=== PATIENT | male | born 1930 | race Caucasian/White ===

== ENCOUNTER 2016-12-23 02:37 | Inpatient (IN) ==
[2016-12-23] MEDS ORDERED: OFIRMEV 1000 MG/ISOTONIC SOLN 100 ML IV ONE ×2 (02:50→11:03)
--- NOTE | 2016-12-23 02:51 | PROVIDER DOCUMENTATION ---
HPI-Male Problem - General Source: family - History of Present Illness-Male Severity in ED: reports: moderate Onset/Duration: reports: last night Timing: reports: still present Context/Activities at Onset: reports: none Urinary Symptoms: reports: hematuria Similar Symptoms Previously?: No Recently seen or treated by another doctor?: No <Juli Du - Last Filed: 12/23/16 02:47> <Sebas Marie - Last Filed: 12/23/16 04:11> - General Chief Complaint: Male Stated Complaint: blood in catheter Time Seen by Provider: 12/23/16 02:40 Allergies/Adverse Reactions: Patient Allergies Allergy/AdvReac Type Severity Reaction Status Date / Time clindamycin Allergy Mild RASH Verified 04/13/13 16:14 Home Medications: Home Medication List Medication Instructions Recorded Confirmed Last Taken Type Sucralfate [Carafate] 1 gm PO 4XDAY #0 tablet 03/24/16 12/23/16 Unknown Rx Citalopram [Celexa] 20 mg PO QAM #0 tablet 08/20/16 12/23/16 Unknown Rx Clopidogrel [Plavix] 75 mg PO DAILY #0 tablet 08/20/16 12/23/16 Unknown Rx Finasteride [Proscar] 5 mg PO DAILY #0 tablet 08/20/16 12/23/16 Unknown Rx Tamsulosin [Flomax] 0.4 mg PO BID #0 capsule 08/20/16 12/23/16 Unknown Rx Divalproex [Depakote] 1 tab PO BID 12/23/16 12/23/16 Unknown History Mirtazapine 1 tab PO HS 12/23/16 12/23/16 Unknown History - History of Present Illness-Male Nature of Presenting Problem: Daughter states that pt has been moaning most of the night. Daughter got up to check on pt and found blood in chair and in catheter bag. Pt has fever on arrival. (Juli Du) Review of Systems - Adult - REVIEW OF SYSTEMS - ADULT ROS:: ROS per family Constitutional: reports: fever. denies: chills Eyes: reports: no symptoms reported Ears, Nose, Mouth & Throat: reports: no symptoms reported Cardiovascular: reports: no symptoms reported Respiratory: reports: no symptoms reported Gastrointestinal: reports: no symptoms reported Genitourinary: reports: hematuria, other (indwelling galvan catheter) Musculoskeletal: reports: no symptoms reported Integumentary: reports: no symptoms reported Neurological: reports: no symptoms reported Psychiatric: reports: no symptoms reported Endocrine: reports: no symptoms reported Hematologic/Lymphatic: reports: no symptoms reported Allergic/Immunologic: reports: no symptoms reported All Other Systems: Reviewed and Negative <Juli Du - Last Filed: 12/23/16 02:47> Past History - Adult - PAST MEDICAL HISTORY-ADULT Review of Records: reports: Nursing Assessment Review, Medications Reviewed Major Childhood Illnesses: reports: denies history Cardiovascular: reports: denies history Respiratory: reports: denies history Gastrointestinal: reports: denies history Obstetrical/Gynecological: reports: denies history Genitourinary: reports: chronic UTI's Musculoskeletal: reports: denies history Neurological: reports: CVA Endocrine/Immune: reports: denies history Other Conditions: reports: MRSA - PRIOR SURGERIES/PROCEDURES Surgical/Procedure History: reports: other (AAA repair) - IMMUNIZATION STATUS Childhood Immunizations: See Nurse Assessment Flu Vaccine: See Nurse Assessment - FAMILY HISTORY Family History: reviewed, not pertinent - SOCIAL HISTORY Smoking: quit greater than 1 year Substance Use: none/never Alcohol Use Frequency: never <Juli Du - Last Filed: 12/23/16 02:47> Physical Exam-General - PHYSICAL EXAM-ADULT Initial Vital Signs Reviewed: Yes - CONSTITUTIONAL General Appearance: alert - RESPIRATORY Respiratory: chest non-tender, lungs clear, normal breath sounds - CARDIOVASCULAR Cardiovascular: normal peripheral pulses, regular rate, rhythm, no edema - GASTROINTESTINAL (ABDOMEN) Abdominal Exam: non tender, soft - MUSCULOSKELETAL Back Exam: no CVA tenderness - SKIN Integumentary: normal color, normal turgor, warm/dry <Juli Du - Last Filed: 12/23/16 02:47> Progress <Juli Du - Last Filed: 12/23/16 02:47> - XRAY 1 XRAY Study: Chest Impression: Normal <Sebas Marie - Last Filed: 12/23/16 04:11> - PLAN OF CARE/RESULTS Progress/Plan/Lab Results: Laboratory Tests 12/23/16 12/23/16 12/23/16 03:10 03:10 03:10 WBC 11.19 H RBC 4.19 L Hgb 12.6 L Hct 38.3 L MCV 91.4 MCH 30.1 MCHC 32.9 L RDW Std Deviation 15.1 H Plt Count 249 MPV 9.5 Immature Gran % (Auto) 0.4 Neut % (Auto) 87.0 H Lymph % (Auto) 7.8 L [place] % (Auto) 2.0 Eos % (Auto) 2.4 Baso % (Auto) 0.4 Immature Gran # (Auto) 0.04 Neut # (Auto) 9.75 H Lymph # (Auto) 0.87 L [place] # (Auto) 0.22 Eos # (Auto) 0.27 Baso # (Auto) 0.04 Sodium 138 Potassium 4.1 Chloride 103 Carbon Dioxide 22 L Anion Gap 13 BUN 21 Creatinine 1.3 H Estimated GFR/1.73 m2 52 BUN/Creatinine Ratio 16 Glucose 108 H Calculated Osmolality 279 Calcium 9.0 Total Bilirubin 0.40 AST 22 ALT 12 Alkaline Phosphatase 82 Total Protein 6.5 Albumin 3.6 Globulin 3.0 Albumin/Globulin Ratio 1.0 Plasma Lactate 2.1 Urine Source Urine Color Urine Clarity Urine pH Ur Specific [place] Urine Protein Urine Ketones Urine Blood Urine Nitrite Urine Bilirubin Urine Urobilinogen Urine Microscopic RBC Urine WBC Urine Microscopic WBC Ur Epithelial Cells Urine Bacteria Urine Glucose 12/23/16 03:40 WBC RBC Hgb Hct MCV MCH MCHC RDW Std Deviation Plt Count MPV Immature Gran % (Auto) Neut % (Auto) Lymph % (Auto) [place] % (Auto) Eos % (Auto) Baso % (Auto) Immature Gran # (Auto) Neut # (Auto) Lymph # (Auto) [place] # (Auto) Eos # (Auto) Baso # (Auto) Sodium Potassium Chloride Carbon Dioxide Anion Gap BUN Creatinine Estimated GFR/1.73 m2 BUN/Creatinine Ratio Glucose Calculated Osmolality Calcium Total Bilirubin AST ALT Alkaline Phosphatase Total Protein Albumin Globulin Albumin/Globulin Ratio Plasma Lactate Urine Source CATH Urine Color RED Urine Clarity VERY CLOUDY A Urine pH 7.0 Ur Specific [place] 1.010 Urine Protein 2+(100 mg/dL) A Urine Ketones NEGATIVE Urine Blood 4+ Urine Nitrite NEGATIVE Urine Bilirubin NEGATIVE Urine Urobilinogen NORMAL Urine Microscopic RBC TNTC A Urine WBC 2+ A Urine Microscopic WBC 10-20 A Ur Epithelial Cells <10 Urine Bacteria 2+ Urine Glucose NEGATIVE Orders Category Date Time Status Bladder Scan and Record Result ORDERED Care 12/23/16 02:50 Active CHEST-PORTABLE [RAD] Stat Exams 12/23/16 02:50 Taken BLOOD CULTURE [BLDCUL] Stat Lab 12/23/16 03:03 Ordered CBC WITH ELECTRONIC DIFF [HEME] Stat Lab 12/23/16 03:10 Completed CMP [COMPREHENSIVE METABOLIC PANEL] [CHEM] Stat Lab 12/23/16 03:10 Completed LACTATE, PLASMA [CHEM] Stat Lab 12/23/16 03:10 Completed UA NIMS W/REFLEX CULT PL [URINALYSIS] Stat Lab 12/23/16 03:40 Completed URINE CULTURE [RM] Routine Lab 12/23/16 04:06 Ordered Acetaminophen [Ofirmev 1000 mg/Isotonic Soln] 100 ml Med 12/23/16 02:50 Discontinued IV NOW CefTRIAXONE 1 GM/NS [Rocephin 1 gm/Ns] 50 ml Med 12/23/16 04:01 Active IV NOW Lorazepam [Ativan] Med 12/23/16 03:17 Discontinued 1 mg IV NOW ONE Morphine Med 12/23/16 03:16 Discontinued 4 mg IV NOW ONE Promethazine [Phenergan] Med 12/23/16 03:16 Discontinued 25 mg IV NOW ONE Sodium Chloride 0.9% Med 12/23/16 03:16 Discontinued 10 ml INJ NOW ONE Vital Signs Temp Pulse Resp BP Pulse Ox 12/23/16 02:46 101.2 F H 103 H 20 187/111 103 H clindamycin Allergy (Mild, Verified 04/13/13 16:14) RASH Sucralfate [Carafate] 1 gm PO 4XDAY #0 tablet 03/24/16 Citalopram [Celexa] 20 mg PO QAM #0 tablet 08/20/16 Clopidogrel [Plavix] 75 mg PO DAILY #0 tablet 08/20/16 Finasteride [Proscar] 5 mg PO DAILY #0 tablet 08/20/16 Tamsulosin [Flomax] 0.4 mg PO BID #0 capsule 08/20/16 Divalproex [Depakote] 1 tab PO BID 12/23/16 Mirtazapine 1 tab PO HS 12/23/16 I&O 12/21/16 12/22/16 12/23/16 06:59 06:59 06:59 Intake Total 100 Output Total 700 Balance -600 Laboratory 12/23/16 12/23/16 12/23/16 03:40 03:10 03:10 WBC 11.19 H RBC 4.19 L Hgb 12.6 L Hct 38.3 L MCV 91.4 MCH 30.1 MCHC 32.9 L RDW Std Deviation 15.1 H Plt Count 249 MPV 9.5 Immature Gran % (Auto) 0.4 Neut % (Auto) 87.0 H Lymph % (Auto) 7.8 L [place] % (Auto) 2.0 Eos % (Auto) 2.4 Baso % (Auto) 0.4 Immature Gran # (Auto) 0.04 Neut # (Auto) 9.75 H Lymph # (Auto) 0.87 L [place] # (Auto) 0.22 Eos # (Auto) 0.27 Baso # (Auto) 0.04 Sodium Potassium Chloride Carbon Dioxide Anion Gap BUN Creatinine Estimated GFR/1.73 m2 BUN/Creatinine Ratio Glucose Calculated Osmolality Calcium Total Bilirubin AST ALT Alkaline Phosphatase Total Protein Albumin Globulin Albumin/Globulin Ratio Plasma Lactate 2.1 Urine Source CATH Urine Color RED Urine Clarity VERY CLOUDY A Urine pH 7.0 Ur Specific [place] 1.010 Urine Protein 2+(100 mg/dL) A Urine Ketones NEGATIVE Urine Blood 4+ Urine Nitrite NEGATIVE Urine Bilirubin NEGATIVE Urine Urobilinogen NORMAL Urine Microscopic RBC TNTC A Urine WBC 2+ A Urine Microscopic WBC 10-20 A Ur Epithelial Cells <10 Urine Bacteria 2+ Urine Glucose NEGATIVE 12/23/16 03:10 WBC RBC Hgb Hct MCV MCH MCHC RDW Std Deviation Plt Count MPV Immature Gran % (Auto) Neut % (Auto) Lymph % (Auto) [place] % (Auto) Eos % (Auto) Baso % (Auto) Immature Gran # (Auto) Neut # (Auto) Lymph # (Auto) [place] # (Auto) Eos # (Auto) Baso # (Auto) Sodium 138 Potassium 4.1 Chloride 103 Carbon Dioxide 22 L Anion Gap 13 BUN 21 Creatinine 1.3 H Estimated GFR/1.73 m2 52 BUN/Creatinine Ratio 16 Glucose 108 H Calculated Osmolality 279 Calcium 9.0 Total Bilirubin 0.40 AST 22 ALT 12 Alkaline Phosphatase 82 Total Protein 6.5 Albumin 3.6 Globulin 3.0 Albumin/Globulin Ratio 1.0 Plasma Lactate Urine Source Urine Color Urine Clarity Urine pH Ur Specific [place] Urine Protein Urine Ketones Urine Blood Urine Nitrite Urine Bilirubin Urine Urobilinogen Urine Microscopic RBC Urine WBC Urine Microscopic WBC Ur Epithelial Cells Urine Bacteria Urine Glucose (O'Meara,Sebas F.) Departure <Juli Du - Last Filed: 12/23/16 02:47> - Departure Time of Disposition Order: 04:11 Certified Medical Emergency: Emergent <Sebas Marie - Last Filed: 12/23/16 04:11> - Departure DIAGNOSIS: UTI (urinary tract infection) due to urinary indwelling Galvan catheter Qualifiers: Indwelling urinary catheter type: indwelling urethral catheter Encounter type: initial encounter Qualified Code(s): T83.511A - Infection and inflammatory reaction due to indwelling urethral catheter, initial encounter; N39.0 - Urinary tract infection, site not specified Disposition: ADMITTED INPATIENT 09 Condition: Fair Attestation - Scribe Verification/Attestation Scribe:: Juli Du Acting as Scribe for:: Sebas Marie Scribe documention review:: This chart was documented by a scribe and accurately reflects the service the provider performed and the decisions made by the provider. <Juli Du - Last Filed: 12/23/16 02:47> Physician Attestation - Physician Attestation I, the provider, attest to the following statement:: Sebas Marie Physician documentation Attestation:: This documentation recorded by the scribe accurately reflects the service I personally performed and the decisions made by me. <Juli Du - Last Filed: 12/23/16 02:47>
[2016-12-23] MEDS ORDERED: SODIUM CHLORIDE 0.9% INJ ONE (03:16)
[2016-12-23] MEDS ORDERED: PHENERGAN IV ONE (03:16)
[2016-12-23] MEDS ORDERED: MORPHINE IV ONE (03:16)
[2016-12-23] MEDS ORDERED: ATIVAN IV ONE (03:17)
[2016-12-23 03:30] LABS: BASO% 0.4 % (0.0-0.8); EOS# 0.27 X1000 (0.0-0.7); EOS% 2.4 % (0.0-10.0); HEMATOCRIT 38.3 % (42.0-52.0); HEMOGLOBIN 12.6 g/dL (14.0-18.0); IMM GRAN# 0.04 X1000 (0.0-0.04); IMM GRAN% 0.4 % (0.0-0.5); LYMPH# 0.87 X1000 (1.2-3.4); LYMPH% 7.8 % (20.5-51.1); MANUAL DIFF NEEDED? NO; MCH 30.1 PG (27-31); MCHC 32.9 g/dL (33-37); MCV 91.4 FL (81-99); MONO# 0.22 X1000 (0.11-0.59); MPV 9.5 FL (7.4-10.4); PLT 249 X1000 (130-400); RBC 4.19 XMIL (4.7-6.1)
[2016-12-23 03:40] LABS: ALBUMIN 3.6 g/dL (3.5-5.0); POTASSIUM 4.1 mmol/L (3.5-5.1); TOTAL BILIRUBIN 0.4 mg/dL (0.20-1.00); TOTAL PROTEIN 6.5 g/dL (6.3-8.3)
[2016-12-23 03:57] LABS: BILIRUBIN URINE NEGATIVE (NEGATIVE); BLOOD URINE 4+ (NEGATIVE); CLARITY VERY CLOUDY (CLEAR); COLOR RED; GLUCOSE URINE NEGATIVE (NEGATIVE); LEUKOCYTES URINE 2+ (NEGATIVE); NITRITE URINE NEGATIVE (NEGATIVE); PROTEIN URINE 2+(100 mg/dL) mg/dL (NEGATIVE); UROBILINOGEN URINE NORMAL
[2016-12-23] MEDS ORDERED: ROCEPHIN 1 GM/NS 50 ML IV ONE (04:01)
[2016-12-23 04:06] LABS: URINE CULTURE PL NEEDED? YES; URINE EPITHELIAL CELLS <10 /HPF (<10); URINE RBC TNTC /HPF (<10); URINE SOURCE CATH
[2016-12-23] MEDS ORDERED: NS 500 ML IV ONE ×2 (04:12→16:18)
[2016-12-23] MEDS ORDERED: HALDOL IV ONE (05:49)
[2016-12-23] MEDS ORDERED: HALDOL ONE (05:49)
--- NOTE | 2016-12-23 08:19 | Diag Imaging Result Document ---
PROCEDURE NAME: CHEST-PORTABLE - 12/23/2016 PORTABLE CHEST X-RAY: COMPARISON: 03/06/2016. FINDINGS: The heart size remains top normal. No focal infiltrates, pneumothorax, or large effusion. IMPRESSION: No acute disease.
[2016-12-23] MEDS ORDERED: NS 1,000 ML IV ONE (10:56)
[2016-12-23] MEDS ORDERED: FLOMAX PO SCH (11:32)
--- NOTE | 2016-12-23 11:38 | HISTORY AND PHYSICAL ---
PRIMARY CARE PHYSICIAN: Dr. Amarjit Carson. CHIEF COMPLAINT: Patient was brought into the emergency room by his daughter stating that she found blood on his chair and in his catheter bag this morning, and that he was also running a fever. HISTORY OF PRESENTING ILLNESS: This is an 86-year-old male, who has an indwelling Zacarias catheter at home with home health and was found this morning to have blood on his chair that he was sitting on and blood in his catheter bag. He was also noted to have a subjective fever per the patient's daughter. On arrival, he had a temperature of 101.2 degrees, pulse 103, blood pressure 187/111, and 20 respirations. He was satting 96% on 2 L. It appears the patient received Ativan 1 mg IV x1, morphine 4 mg IV x1, and Phenergan 25 mg IV x1 in the emergency room on arrival. At this time the patient is resting quietly. Difficult to arouse due to lethargy from the previous medications listed. No family at bedside currently. Information obtained from the ER record and previous medical records. He is being admitted for further evaluation and treatment. He was noted to have 4+ blood in his urinalysis, 2+ white blood cells with 2+ bacteria, a creatinine of 1.3 and a mild bump in his white blood cell count at 11.19. PAST MEDICAL HISTORY: GERD, IBS with diarrhea and embolic stroke with right- sided weakness and a melanoma. 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 FAMILY HISTORY: His mom had diabetes and dad had prostate cancer. SOCIAL HISTORY: Currently lives with his daughter. No tobacco use currently, but does have a history of. No alcohol or illicit drug use. ALLERGIES: Clindamycin. HOME MEDICATIONS: He takes Celexa 20 mg p.o. q.a.m., Plavix 75 mg p.o. daily. We will hold. Depakote 125 mg p.o. b.i.d., Proscar 5 mg p.o. daily, mirtazapine 15 mg p.o. at bedtime, Carafate 1 g p.o. 4 times daily, and Flomax 0.4 mg p.o. b.i.d. LABORATORY DATA/X-RAY DATA: Showed a white blood cell count of 11.19, a hemoglobin of 12.6, hematocrit 38.3, platelets of 249. Sodium of 138, potassium 4.1, chloride 103, CO2 22, BUN of 21, creatinine 1.3, glucose 108. Plasma lactate was 2.1. Urinalysis showed 4+ blood, 2+ white blood cells, 2+ bacteria. Chest x-ray showed no acute disease. REVIEW OF SYSTEMS: Unable to obtain from the patient as he is lethargic from the medications he received in the ER, but he did have a subjective fever and reported blood in his catheter bag that is documented by the nursing staff. PHYSICAL EXAMINATION: VITAL SIGNS: On arrival showed a temperature of 101.2 degrees, pulse 103, respirations 20, blood pressure 187/111. Currently, he was noted to have a blood pressure of 82/53. No further documentation of a temperature. GENERAL: This is an 86-year-old male, who is lying in the bed unable to answer questions due to lethargy from pain medication and anti anxiety medications IV. HEENT: Appears normocephalic and atraumatic. Pupils are equal, round, reactive to light. Extraocular movements appear intact. Oropharynx and nares are clear. NECK: Supple. LUNGS: Clear to auscultation bilaterally with equal lung expansion and chest wall movement. HEART: With regular rate and rhythm. No murmurs, rubs, or gallops. ABDOMEN: Soft, nontender, nondistended. Bowel sounds are present x4 quadrants. EXTREMITIES: No clubbing, cyanosis, or edema. NEUROLOGICAL: Unable to assess at this time. A Zacarias catheter was changed out and currently does not have anything, but dark yellow urine in his Zacarias catheter bag. ASSESSMENT: 1. Urinary tract infection/sepsis 2. Fever. 3. Acute kidney injury. 4. Came in with hypertension, now with hypotension. PLAN: He is being admitted to the medical unit at [facility]. We are checking a urine culture. He will continue his Rocephin 1 gram IV q. 24 hours. Will give him normal saline bolus 1 L x1, then run at 125 mL an hour. We will give a 1-time dose of Ofirmev 1000 mg IV x1 now. Then we will recheck a CBC and a BMP in the a.m. It is noted by ER documentation that on arrival the patient was agitated, and is the reason why they gave the medications in the ER. We will continue to monitor. Dictated by AUSTIN Rodríguez for Hua Romero MD pt examined, has UTI and sepsis, pt has developed some degree of shock and will need closer monitoring, due to persistent hypotension, may need vasopressors , will move to ICU and start dopamine if MAP<65, would also recommend changing out catheter APENOT MTDD
[2016-12-23] MEDS: DEPAKOTE SPRINKLE PO SCH ×2 (12:39→21:19)
[2016-12-23] MEDS: NS 1,000 ML IV SCH ×3 (12:39→18:21)
[2016-12-23] MEDS: CARAFATE PO SCH ×3 (12:39→21:20)
[2016-12-23] MEDS: PROSCAR PO SCH (12:39)
[2016-12-23] MEDS: CELEXA PO SCH (12:40)
[2016-12-23] MEDS ORDERED: DOPAMINE 800 MG/D5W (PARKWAY ONLY!) 250 ML IV SCH (18:13)
[2016-12-23] MEDS: REMERON PO SCH (21:19)
[2016-12-24] MEDS: NS 1,000 ML IV SCH ×2 (03:57→13:11)
[2016-12-24] MEDS ORDERED: ROCEPHIN 1 GM/NS 50 ML IV SCH (04:00)
[2016-12-24 06:04] LABS: BASO% 0.3 % (0.0-0.8); EOS# 0.12 X1000 (0.0-0.7); EOS% 0.5 % (0.0-10.0); HEMATOCRIT 33.6 % (42.0-52.0); HEMOGLOBIN 11.1 g/dL (14.0-18.0); IMM GRAN# 0.11 X1000 (0.0-0.04); IMM GRAN% 0.5 % (0.0-0.5); LYMPH# 1.42 X1000 (1.2-3.4); LYMPH% 6.2 % (20.5-51.1); MANUAL DIFF NEEDED? YES; MCH 29.9 PG (27-31); MCV 90.6 FL (81-99); MONO# 1.23 X1000 (0.11-0.59); MONO% 5.4 % (1.7-9.3); MPV 9.6 FL (7.4-10.4); NEUT% 87.1 % (42.2-75.2); PLT 189 X1000 (130-400); RBC 3.71 XMIL (4.7-6.1)
[2016-12-24 06:35] LABS: AGAP 9; BUN 26 mg/dL (8-22); CALCIUM 8.1 mg/dL (8.8-10.2); CHLORIDE 112 mmol/L (98-107); COSMO 286; POTASSIUM 3.6 mmol/L (3.5-5.1); SODIUM 141 mmol/L (136-145); TCO2 20 mmol/L (25-35)
[2016-12-24 07:18] LABS: BANDS 4 % (0-1); LYMPHS 5 % (21-51); MONO 2 % (1-9)
[2016-12-24] MEDS: CARAFATE PO SCH ×4 (07:42→20:20)
[2016-12-24] MEDS: DEPAKOTE SPRINKLE PO SCH ×2 (09:26→20:20)
[2016-12-24] MEDS: CELEXA PO SCH (09:26)
[2016-12-24] MEDS: PROSCAR PO SCH (09:26)
[2016-12-24] MEDS ORDERED: DOPAMINE 800 MG/D5W (PARKWAY ONLY!) 250 ML IV SCH (10:00)
[2016-12-24] MEDS ORDERED: NS 250 ML IV ONE (11:33)
--- NOTE | 2016-12-24 12:05 | PROGRESS NOTE ---
DATE: 12/24/2016 SUBJECTIVE: Patient has no focal complaints. OBJECTIVE: Vital Signs: Blood pressure 93/58, heart rate of 82, respiratory rate 15, temperature 97.5 degrees. They did end up having to start some dopamine last night on him. He is on about 4 mcg/kg per minute. Cardiovascular: Regular rate and rhythm. Pulmonary: Bilateral breath sounds clear to auscultation. GI: Soft, nontender, nondistended. Bowel sounds are positive. Laboratory Data: Hemoglobin and hematocrit 11 and 33. White count has jumped up to 22,000. Creatinine though has come down to 1.1. Bands are still 4%. PROBLEM LIST: 1. Urinary tract infection and septic shock. He is on Rocephin. I am going to switch him to cefepime and see how he does. He is on dopamine and hydration, and we will continue to follow. I am going to give him a little bit of fluid bolus to see if we can try to get him off this drip, and we will continue to monitor. 2. Septic shock. Again, he is on vasopressors. 3. Dementia. Appears to be stable. Continue to monitor. DISPOSITION: Pending resolution of his multiple issues. TIME SPENT: Greater than 30 minute critical care time for septic shock on IV vasopressors.
[2016-12-24] MEDS: MAXIPIME 1 GM/NS 50 ML IV SCH (15:11)
[2016-12-24] MEDS: REMERON PO SCH (20:20)
[2016-12-25] MEDS ORDERED: CALMOSEPTINE OINTMENT TOP PRN (04:48)
[2016-12-25] MEDS: CARAFATE PO SCH ×4 (06:44→20:45)
[2016-12-25 06:46] LABS: HEMATOCRIT 35.1 % (42.0-52.0); HEMOGLOBIN 11.2 g/dL (14.0-18.0); MCH 29.9 PG (27-31); MCHC 31.9 g/dL (33-37); MCV 93.6 FL (81-99); MPV 10.7 FL (7.4-10.4); RBC 3.75 XMIL (4.7-6.1)
[2016-12-25 07:27] LABS: AGAP 14; BUN 24 mg/dL (8-22); CALCIUM 7.9 mg/dL (8.8-10.2); CHLORIDE 111 mmol/L (98-107); COSMO 287; POTASSIUM 4.1 mmol/L (3.5-5.1); SODIUM 143 mmol/L (136-145); TCO2 19 mmol/L (25-35)
[2016-12-25] MEDS: CELEXA PO SCH (10:08)
[2016-12-25] MEDS: PROSCAR PO SCH (10:08)
[2016-12-25] MEDS: DEPAKOTE SPRINKLE PO SCH ×2 (10:09→20:45)
[2016-12-25] MEDS: NS 1,000 ML IV SCH ×3 (10:19→23:24)
[2016-12-25] MEDS: MAXIPIME 1 GM/NS 50 ML IV SCH ×2 (13:09)
[2016-12-25] MEDS ORDERED: CATAPRES PO PRN (14:07)
[2016-12-25] MEDS ORDERED: MERREM 1 GM in NS 50 ML IV SCH (14:15)
--- NOTE | 2016-12-25 14:52 | PROGRESS NOTE ---
DATE: 12/25/2016 SUBJECTIVE: Patient resting quietly in bed. No complaints voiced. OBJECTIVE: Temperature 97.8 degrees, pulse 70, respirations 18, blood pressure 169/85, saturating 100% on room air. HEENT: Normocephalic and atraumatic. The pupils are equal, round, and reactive to light. Extraocular movements are intact. The oropharynx and nares are clear. Neck is supple. Lungs are clear to auscultation bilaterally with equal lung expansion and chest wall movement. Heart with regular rate and rhythm. No murmurs, rubs, or gallops. Abdomen is soft, nontender, nondistended. Bowel sounds are present x4 quadrants. Extremities: There is no clubbing, cyanosis, or edema. Neurologic: The cranial nerves 2-12 appear grossly intact. LABORATORY DATA: Showed a white blood cell count of 12.89, a hemoglobin of 11.2 , hematocrit 35.1, platelets 135,000. Sodium of 143, potassium 4.1, chloride 111, CO2 of 19. BUN of 24 with a creatinine of 1.0, glucose of 69 this morning. Urine culture showed Klebsiella pneumoniae that was ESBL positive. ASSESSMENT AND PLAN: 1. A Klebsiella pneumoniae urinary tract infection that is ESBL positive. We discontinued the cefepime and started him on meropenem 1 gram IV q. 8 hours after reviewing his sensitivity. His white blood cells have improved. The patient is remaining alert and oriented. 2. Septic shock; appears resolved. He had been on vasopressors for his hypotension. Now, he is developing what appears to be hypertension that may be normal for this patient, but in reviewing his home medications, he does not have any medications for hypertension. We will monitor this closely. We will give him some clonidine 0.1 mg p.o. q.4 hours p.r.n. for a systolic blood pressure greater than 180, diastolic greater than 100. If it continues to be elevated, we may need to look at placing him on some routine antihypertensive. 3. Dementia, stable currently. It is noted that this is the patient's going into his 3rd day on antibiotics, but we have switched them each day. So, this is actually going to be his first day on the meropenem treating appropriately for the sensitivity. We will recheck a CBC and a BMP in the a.m. Dictated by AUSTIN Rodríguez for Hua Romero MD pt examined, agree with above, will need home iv therapy, when improved, possibly may need rehab APENOT MTDD
[2016-12-25] MEDS ORDERED: CARAFATE ONE (15:35)
[2016-12-25] MEDS: INVANZ 1 GM/NS 50 ML IV SCH (16:04)
[2016-12-25] MEDS: NORVASC PO SCH (17:48)
[2016-12-25] MEDS: REMERON PO SCH (20:45)
[2016-12-25] MEDS: HALDOL IV PRN (22:45)
[2016-12-26] MEDS: NS 1,000 ML IV SCH ×3 (02:25→17:30)
[2016-12-26] MEDS: CARAFATE PO SCH ×4 (06:30→21:07)
[2016-12-26 06:32] LABS: MANUAL DIFF NEEDED? NO
[2016-12-26 06:36] LABS: BASO% 0.8 % (0.0-0.8); EOS# 0.34 X1000 (0.0-0.7); EOS% 5.2 % (0.0-10.0); HEMATOCRIT 31.5 % (42.0-52.0); HEMOGLOBIN 10.2 g/dL (14.0-18.0); IMM GRAN# 0.01 X1000 (0.0-0.04); IMM GRAN% 0.2 % (0.0-0.5); LYMPH# 1.13 X1000 (1.2-3.4); LYMPH% 17.2 % (20.5-51.1); MCH 29.5 PG (27-31); MCHC 32.4 g/dL (33-37); MONO# 0.49 X1000 (0.11-0.59); MONO% 7.4 % (1.7-9.3); MPV 10.2 FL (7.4-10.4); NEUT% 69.2 % (42.2-75.2); PLT 135 X1000 (130-400); RBC 3.46 XMIL (4.7-6.1)
[2016-12-26 06:58] LABS: AGAP 11; BUN 20 mg/dL (8-22); CALCIUM 7.8 mg/dL (8.8-10.2); CHLORIDE 112 mmol/L (98-107); COSMO 283; POTASSIUM 2.9 mmol/L (3.5-5.1); SODIUM 141 mmol/L (136-145); TCO2 19 mmol/L (25-35)
[2016-12-26] MEDS ORDERED: KLOR-CON PO ONE (09:38)
[2016-12-26] MEDS: CELEXA PO SCH (09:47)
[2016-12-26] MEDS: DEPAKOTE SPRINKLE PO SCH ×2 (09:47→21:07)
[2016-12-26] MEDS: PROSCAR PO SCH (09:47)
[2016-12-26] MEDS: NORVASC PO SCH (09:47)
--- NOTE | 2016-12-26 10:23 | PROGRESS NOTE ---
DATE: 12/26/2016 SUBJECTIVE: Patient sitting up in bed. No complaints voiced. OBJECTIVE: Vital Signs: Temperature 97.5 degrees, pulse 72, respirations 20, blood pressure 156/88, satting 100% on 2 L via nasal cannula. General: This is an 86-year- old male, who is sitting up in the bed and answers questions appropriately. HEENT: Normocephalic and atraumatic. Pupils are equal, round, reactive to light. The extraocular movements are intact. Oropharynx and nares are clear. Neck: Supple. Lungs: Clear to auscultation bilaterally with equal lung expansion and chest wall movement. Heart: With regular rate and rhythm. No murmurs, rubs, or gallops. Abdomen: Soft, nontender, nondistended. Bowel sounds are present x4 quadrants. Extremities: No clubbing, cyanosis, or edema. Neurological: The cranial nerves 2-12 appear grossly intact. LABORATORY DATA: Showed a white blood cell count of 6.58, hemoglobin of 10.2 with a hematocrit of 31.5, platelets 135. Sodium of 141, potassium is 2.9, chloride 112, CO2 19. BUN of 20 and creatinine 0.8. ASSESSMENT/PLAN: 1. Klebsiella pneumoniae urinary tract infection that is extended spectrum beta lactamase positive. We changed him from the Merrem yesterday to Invanz 1 g intravenous every 24 hours as patient is going to need home intravenous antibiotic treatment, and once-a -day dosing is certainly more feasible. We have consulted for a PICC line. His white blood cell count has returned to normal. He has remained afebrile. 2. Hypokalemia. We will supplement with potassium and recheck a basic metabolic panel in the morning. 3. Dementia, stable. Dictated by AUSTIN Rodríguez for Hua Romero MD pt examined, agree with above, discussed with family, would prefer to go home with IV abx APENOT MTDD
[2016-12-26] MEDS: INVANZ 1 GM/NS 50 ML IV SCH ×2 (16:10→17:56)
[2016-12-26] MEDS: REMERON PO SCH (21:07)
[2016-12-27] MEDS: HALDOL IV PRN (01:21)
[2016-12-27] MEDS: NS 1,000 ML IV SCH ×2 (04:12→19:29)
[2016-12-27 07:07] LABS: INR 1.27 (0.86-1.15); PROTIME 16.2 Seconds (12.1-15.5)
[2016-12-27] MEDS: CARAFATE PO SCH ×4 (07:49→21:12)
[2016-12-27] MEDS: NORVASC PO SCH (08:56)
[2016-12-27] MEDS: DEPAKOTE SPRINKLE PO SCH ×2 (08:57→21:12)
[2016-12-27] MEDS: PROSCAR PO SCH (08:57)
[2016-12-27] MEDS: CELEXA PO SCH (08:57)
[2016-12-27 10:05] LABS: MANUAL DIFF NEEDED? NO
[2016-12-27 10:19] LABS: BASO% 1.3 % (0.0-0.8); EOS# 0.32 X1000 (0.0-0.7); EOS% 5.2 % (0.0-10.0); HEMATOCRIT 37.5 % (42.0-52.0); HEMOGLOBIN 12.1 g/dL (14.0-18.0); IMM GRAN# 0.02 X1000 (0.0-0.04); IMM GRAN% 0.3 % (0.0-0.5); LYMPH# 1.36 X1000 (1.2-3.4); LYMPH% 22.3 % (20.5-51.1); MCH 29.8 PG (27-31); MCHC 32.3 g/dL (33-37); MCV 92.4 FL (81-99); MONO# 0.52 X1000 (0.11-0.59); MONO% 8.5 % (1.7-9.3); MPV 10.3 FL (7.4-10.4); NEUT% 62.4 % (42.2-75.2); PLT 78 X1000 (130-400); RBC 4.06 XMIL (4.7-6.1)
[2016-12-27 10:31] LABS: AGAP 10; BUN 14 mg/dL (8-22); CALCIUM 8.2 mg/dL (8.8-10.2); CHLORIDE 112 mmol/L (98-107); COSMO 283; POTASSIUM 3.8 mmol/L (3.5-5.1); SODIUM 142 mmol/L (136-145); TCO2 20 mmol/L (25-35)
--- NOTE | 2016-12-27 12:12 | PROGRESS NOTE ---
DATE: 12/27/2016 SUBJECTIVE: Patient resting quietly in bed. It is noted that the patient had a sleepless night. Had some agitation and the daughter had to be notified. He was upset over having to wear the hospital gown so the daughter brought in some regular clothes for the patient to wear. He is calm with no complaints this a.m. OBJECTIVE: Vital Signs: Temperature 97.2 degrees, pulse 72, respirations 17, blood pressure 130/82, saturating 100% on 2 L via nasal cannula. General: This is an 86-year- old male, lying in the bed, answering questions appropriately this a.m. HEENT: Normocephalic and atraumatic. Pupils are equal, round, and reactive to light. The extraocular movements are intact. Oropharynx and nares are clear. Neck: Supple. Lungs: Clear to auscultation bilaterally with equal lung expansion and chest wall movement. Heart: With regular rate and rhythm. No murmurs, rubs, or gallops. Abdomen: Soft, nontender, nondistended. Bowel sounds are present x4 quadrants. Extremities: No clubbing, cyanosis, or edema. Neurological: The cranial nerves 2 through 12 are grossly intact. LABORATORY DATA: Showed a white blood cell count of 6.11, hemoglobin 12.1, hematocrit 37.5, platelets of 78,000. Sodium of 142, potassium 3.8, chloride 112, CO2 20, BUN of 14, creatinine 0.8, glucose of 94. ASSESSMENT: 1. Klebsiella pneumoniae urinary tract infection that is ESBL positive. We continue his IV antibiotic of Invanz 1 gram IV q.24. He is scheduled to get a PICC line in the a.m. for home IV antibiotic therapy. Will recheck a CBC in the a.m. 2. Hypokalemia, resolved. 3. Thrombocytopenia. He has slowly trended down on his platelets since he was in the hospital. When he started he was at 249,000 and now is at 78,000. I will review his medication regimen and see if he has any drugs that would cause some isolated thrombocytopenia. Again, he had hematuria when he 1st arrived so this too may be a contributing factor overall. Will recheck labs in the a.m. 4. Dementia. Stable at this time. Again, he was with some agitation last night but this morning is calm. DISPOSITION: Likely home with home IV antibiotic therapy after a PICC line is placed tomorrow. Dictated by AUSTIN Rodríguez for Hua Romero MD agree with above , will continue to follow , home vs rehab soon APENOT MTDD
--- NOTE | 2016-12-27 13:29 | Diag Imaging Result Document ---
PROCEDURE NAME: RENAL STONE SEARCH - 12/27/2016 CT ABDOMEN AND PELVIS WITHOUT ORAL OR INTRAVENOUS CONTRAST. DOSE REDUCTION PROTOCOL: COMPARISON: 03/12/2016. FINDINGS: There are small bilateral pleural effusions. The one on the right measures 3.3 cm posteriorly and inferiorly in the midline whereas the one on the left measures 2.8 cm. The left effusion is slightly larger than on the prior exam whereas the right is similar in size. The gallbladder has been removed. Normal spleen and adrenal glands. No inflammation about the pancreas. No focal hepatic abnormality identified on this noncontrasted exam. No renal stones. No hydronephrosis. There are several renal cysts. Prior repair to distal abdominal aortic aneurysm. The stents extend into the proximal common iliac arteries. No bowel obstruction. There is stool in the rectum. There are many scattered diverticula, primarily in the descending and sigmoid colon. No adjacent free air. No abscess. The urinary bladder is decompressed with a Zacarias catheter. Prominent degenerative spine changes. There are bilateral pars defects to the L5 vertebra with slight subluxation of L5 on the sacrum. IMPRESSION: 1. No renal stones or hydronephrosis. 2. Diverticulosis. 3. Small pleural effusions with basilar atelectasis. 4. Cholecystectomy. 5. Prior repair to the distal abdominal aorta. 6. Prominent stool in the rectum.
[2016-12-27] MEDS: MIRALAX PO SCH (14:52)
[2016-12-27] MEDS: LACTULOSE PO SCH ×2 (14:52→21:12)
[2016-12-27] MEDS ORDERED: INVANZ IM ONE (15:50)
[2016-12-27] MEDS ORDERED: XYLOCAINE-MPF 1% INJ ONE (16:30)
[2016-12-27] MEDS: REMERON PO SCH (21:12)
[2016-12-28 00:24] LABS: C DIFF TOXIN PL NEGATIVE (NEGATIVE)
[2016-12-28 00:26] LABS: C DIFF ANTIGEN PL POSITIVE (NEGATIVE)
[2016-12-28] MEDS: HALDOL IV PRN ×2 (01:01→22:03)
[2016-12-28] MEDS: NS 1,000 ML IV SCH (06:46)
[2016-12-28 06:56] LABS: MANUAL DIFF NEEDED? NO
[2016-12-28 06:58] LABS: EOS# 0.38 X1000 (0.0-0.7); EOS% 5.5 % (0.0-10.0); HEMATOCRIT 37.1 % (42.0-52.0); HEMOGLOBIN 12.5 g/dL (14.0-18.0); IMM GRAN# 0.01 X1000 (0.0-0.04); IMM GRAN% 0.1 % (0.0-0.5); LYMPH# 1.56 X1000 (1.2-3.4); LYMPH% 22.7 % (20.5-51.1); MCH 29.9 PG (27-31); MCHC 33.7 g/dL (33-37); MCV 88.8 FL (81-99); MONO% 8.7 % (1.7-9.3); MPV 9.9 FL (7.4-10.4); PLT 157 X1000 (130-400); RBC 4.18 XMIL (4.7-6.1)
[2016-12-28] MEDS ORDERED: NS 500 ML ONE (07:16)
[2016-12-28 07:17] LABS: AGAP 11; BUN 11 mg/dL (8-22); CALCIUM 8.1 mg/dL (8.8-10.2); CHLORIDE 110 mmol/L (98-107); COSMO 276; POTASSIUM 3.3 mmol/L (3.5-5.1); SODIUM 139 mmol/L (136-145); TCO2 18 mmol/L (25-35)
[2016-12-28] MEDS: CARAFATE PO SCH ×3 (08:00→22:03)
--- NOTE | 2016-12-28 09:04 | Diag Imaging Result Document ---
PROCEDURE NAME: CHEST-PORTABLE - 12/28/2016 PORTABLE CHEST: COMPARISON: 12/23/2016. FINDINGS: A left-sided PICC line has been placed since the prior exam. The tip overlies the mid- to-distal superior vena cava. The lungs remain well expanded. The heart is not enlarged. The vessels are not distended. No pneumonia. No pleural effusion is identified. There is a granuloma in the medial left base. IMPRESSION: Placement of a left-sided PICC line with the tip overlying the [id number] superior vena cava.
[2016-12-28] MEDS: NORVASC PO SCH (09:05)
[2016-12-28] MEDS: PROSCAR PO SCH (09:05)
[2016-12-28] MEDS: CELEXA PO SCH (09:05)
[2016-12-28] MEDS: DEPAKOTE SPRINKLE PO SCH ×2 (09:05→22:03)
[2016-12-28] MEDS: MIRALAX PO SCH (09:06)
[2016-12-28] MEDS: LACTULOSE PO SCH (09:06)
[2016-12-28] MEDS ORDERED: KLOR-CON PO ONE (14:01)
[2016-12-28] MEDS ORDERED: FLAGYL PO SCH (14:30)
[2016-12-28] MEDS: INVANZ 1 GM/NS 50 ML IV SCH (16:20)
[2016-12-28] MEDS: CULTURELLE FOR KIDS PO SCH (16:25)
--- NOTE | 2016-12-28 16:26 | PROGRESS NOTE ---
DATE: 12/28/2016 SUBJECTIVE: The patient looks okay. He had several episodes of diarrhea last night. He was on MiraLAX and lactulose to be fair. OBJECTIVE: Vital signs: Blood pressure 147/82, heart rate 64, respiratory rate 18, temperature 97.1 degrees, 97% on 2 L. Cardiovascular: Regular rate and rhythm. Pulmonary: Bilateral breath sounds. Clear to auscultation. Gastrointestinal: Soft, nontender, nondistended. Bowel sounds are positive. LABORATORY DATA: Potassium 3.1, white count, normal hemoglobin and hematocrit 12 and 37. His magical disappearing platelets went from 78,000 to 157,000. C. difficile toxin was negative but C. difficile antigen was positive. In any case, renal CT scan was negative except for impending fecal impaction. PROBLEM LIST: 1. ESBL Klebsiella urinary tract infection. He is on Invanz. Plan is for a week of IV antibiotics. PICC has been placed. 2. Clostridium difficile antigen positivity in the setting of diarrhea on laxatives. Clostridium difficile toxin is negative which would suggest he does not have an active colitis. We will empirically start Flagyl and ask Infectious Disease to comment on treatment and follow. I am going to see if he has inflammatory colitis with white blood cells in the stool and lactoferrin and we will follow. 3. Benign prostatic hypertrophy. We will continue Proscar. 4. Dementia appears to be relatively stable. DISPOSITION: Hopefully to rehab versus home. Clostridium difficile status is now affecting his discharge planning. We will continue to follow.
[2016-12-28] MEDS: REMERON PO SCH (22:03)
[2016-12-29 06:52] LABS: HEMATOCRIT 33.6 % (42.0-52.0); HEMOGLOBIN 11.2 g/dL (14.0-18.0); MCH 29.2 PG (27-31); MCHC 33.3 g/dL (33-37); MCV 87.5 FL (81-99); MPV 9.9 FL (7.4-10.4); RBC 3.84 XMIL (4.7-6.1)
[2016-12-29 07:12] LABS: AGAP 9; BUN 10 mg/dL (8-22); CHLORIDE 108 mmol/L (98-107); COSMO 276; MAGNESIUM 1.7 mg/dL (1.5-2.7); POTASSIUM 2.9 mmol/L (3.5-5.1); SODIUM 139 mmol/L (136-145); TCO2 22 mmol/L (25-35)
[2016-12-29] MEDS: CELEXA PO SCH (08:45)
[2016-12-29] MEDS: NORVASC PO SCH (08:46)
[2016-12-29] MEDS: CULTURELLE FOR KIDS PO SCH ×3 (08:46→17:19)
[2016-12-29] MEDS: DEPAKOTE SPRINKLE PO SCH ×2 (08:46→21:01)
[2016-12-29] MEDS: PROSCAR PO SCH (08:46)
[2016-12-29] MEDS: CARAFATE PO SCH ×4 (08:48→21:00)
[2016-12-29] MEDS: KLOR-CON PO SCH ×2 (08:54→21:01)
--- NOTE | 2016-12-29 09:30 | PROGRESS NOTE ---
DATE: 12/29/2016 SUBJECTIVE: Patient states he is feeling a little bit better today. He actually had no bowel movements last night at all. OBJECTIVE: Vital Signs: Reviewed. Temperature 97 degrees, pulse 80, respiratory 18, BP 146/68, saturation 96% on room air. General: The patient is a well-developed, elderly male who is currently in no respiratory distress. He is awake, alert. Neck: Supple. CV: Regular rate. Chest: Clear. Abdomen: Soft. LABS: CBC normal. Potassium 2.9. Calcium 8.0. ASSESSMENT: 1. Sepsis secondary to Klebsiella urinary tract infection. 2. Klebsiella urinary tract infection. Continue Invanz for 6 more days. 3. Hypokalemia. Will attempt to replace p.o. and recheck in the a.m. 4. Diarrhea has resolved which certainly refutes the fact of him having Clostridium difficile. His Clostridium difficile toxin is negative which also would correlate with a having a negative Clostridium difficile. The antigen should not be used alone to determine positive or negative. 5. Benign prostatic hypertrophy. 6. Dementia. PLAN: Hopefully the patient's potassium will return to normal in the a.m. and he can be transferred to rehab as he does not have active C. difficile at this time. We will continue Culturelle. Continue Invanz for 6 more days.
[2016-12-29] MEDS: INVANZ 1 GM/NS 50 ML IV SCH (17:19)
[2016-12-29] MEDS: REMERON PO SCH (21:01)
[2016-12-30] MEDS: HALDOL IV PRN ×2 (03:06→12:45)
[2016-12-30 05:38] LABS: HEMATOCRIT 35.9 % (42.0-52.0); HEMOGLOBIN 11.9 g/dL (14.0-18.0); MCH 28.9 PG (27-31); MCHC 33.1 g/dL (33-37); MCV 87.1 FL (81-99); MPV 9.7 FL (7.4-10.4); RBC 4.12 XMIL (4.7-6.1)
[2016-12-30 06:04] LABS: AGAP 12; ALKALINE PHOSPHATASE 84 U/L (32-122); BUN 9 mg/dL (8-22); CALCIUM 8.2 mg/dL (8.8-10.2); CHLORIDE 105 mmol/L (98-107); COSMO 278; GOT 20 U/L (10-34); GPT 13 U/L (10-44); MAGNESIUM 1.8 mg/dL (1.5-2.7); POTASSIUM 3.8 mmol/L (3.5-5.1); SODIUM 140 mmol/L (136-145); TCO2 23 mmol/L (25-35); TOTAL PROTEIN 5.4 g/dL (6.3-8.3)
[2016-12-30] MEDS: DEPAKOTE SPRINKLE PO SCH ×2 (08:31→21:46)
[2016-12-30] MEDS: CELEXA PO SCH (08:31)
[2016-12-30] MEDS: PROSCAR PO SCH (08:31)
[2016-12-30] MEDS: NORVASC PO SCH (08:31)
[2016-12-30] MEDS: KLOR-CON PO SCH ×2 (08:31→21:46)
[2016-12-30] MEDS: CARAFATE PO SCH ×4 (08:32→21:46)
[2016-12-30] MEDS: CULTURELLE FOR KIDS PO SCH ×3 (09:08→16:18)
[2016-12-30] MEDS: INVANZ 1 GM/NS 50 ML IV SCH (16:18)
--- NOTE | 2016-12-30 17:31 | PROGRESS NOTE ---
DATE: 12/30/2016 SUBJECTIVE: The patient states he is feeling a little bit better today. His diarrhea has slowed. He denies any chest pain, shortness of breath. OBJECTIVE: Vital Signs: Blood pressure is 127/74, heart rate is 67, respirations are 18, temperature is 97.8 degrees with room air saturation of 97-100%. Cardiovascular: Regular rate and rhythm. S1, S2 appreciated. Pulmonary: Breath sounds are clear. No increased work of breathing noted. Gastrointestinal: Abdomen is soft, nontender, nondistended with bowel sounds in all 4 quadrants. Back: No CVAT. No spine tenderness. : Deferred. Extremities: No clubbing, cyanosis, or edema. Calves are nontender. Pulses are palpable x4. LABORATORY: WBC is 7.7 with hemoglobin 11.9, hematocrit 35.9, and platelets of 220,000. Sodium is 140 and potassium 3.8, BUN 9, creatinine 0.7 with a glucose of 90. ASSESSMENT: 1. Sepsis secondary to Klebsiella urinary tract infection. 2. Klebsiella urinary tract infection, on IV Invanz. He requires 5 more days. 3. Hypokalemia. We will continue to trend electrolytes and replete as appropriate. 4. Diarrhea has resolved once laxatives were discontinued. The patient had a Clostridium difficile negative specimen for toxin. 5. Benign prostatic hypertrophy. 6. Dementia. PLAN: We will continue to trend electrolytes. We will continue with his current regimen. He requires Invanz for 5 more days. We are awaiting rehab placement. Dictated by AUSTIN Marquez for Luis Rizo MD
[2016-12-30] MEDS: REMERON PO SCH (21:46)
--- NOTE | 2016-12-31 08:00 | PROGRESS NOTE ---
DATE: 12/31/2016 SUBJECTIVE: Patient without new complaints. He is feeling better. The daughter notes that he has not been eating well. His diarrhea has slowed down. PHYSICAL EXAMINATION: Vital Signs: Temperature 97, pulse 58, respiratory rate 20, BP 153/73. General: The patient is well-developed, well-nourished, currently really in no respiratory distress. He is awake, alert, pleasant to talk with. HEENT: Normocephalic, atraumatic. Neck: Supple. CV: Regular rate. Chest: Relatively clear. Abdomen: Soft. Extremities: Moves all extremities. LABS: No new labs today. ASSESSMENT: 1. Urinary tract infection with Klebsiella. 2. Sepsis, resolved. 3. Clostridium difficile antigen positive but toxin negative. Therefore, he does not have Clostridium difficile. 4. Benign prostatic hyperplasia. 5. Dementia. PLAN: Hopefully, the patient will be able to be discharged to rehabilitation later this afternoon. He will need to continue Invanz for 5 more days.
[2016-12-31] MEDS: CARAFATE PO SCH ×2 (09:57→11:04)
[2016-12-31] MEDS: PERIACTIN PO SCH ×2 (09:57→11:04)
[2016-12-31] MEDS: KLOR-CON PO SCH (09:57)
[2016-12-31] MEDS: PROSCAR PO SCH (09:57)
[2016-12-31] MEDS: CELEXA PO SCH (09:57)
[2016-12-31] MEDS: CULTURELLE FOR KIDS PO SCH ×2 (09:57→11:48)
[2016-12-31] MEDS: NORVASC PO SCH (09:58)
[2016-12-31] MEDS: DEPAKOTE SPRINKLE PO SCH (09:58)
--- NOTE | 2016-12-31 11:02 | DISCHARGE SUMMARY ---
ADMISSION DATE: 12/23/2016 DISCHARGE DATE: DIAGNOSES: 1. Klebsiella urinary tract infection, on IV antibiotics. 2. Sepsis, resolved. 3. Acute kidney injury, resolved. 4. Gastroesophageal reflux disease. 5. Irritable bowel syndrome with diarrhea. 6. History of embolic stroke with right-sided weakness. DIAGNOSTICS: On 12/23/2016 chest x-ray revealed heart size remains normal. No focal infiltrates, pneumothorax, or large effusion. No acute disease. On 12/27/[address] reveals no renal stones or hydronephrosis. Diverticulosis, small pleural effusions with basilar atelectasis, cholecystectomy, prior repair to the distal abdominal aorta, prominent stool in the rectum. MICROBIOLOGY: 1. Blood cultures x2 revealed no growth after 5 days. 2. Urine culture: Klebsiella pneumoniae, multidrug resistant, susceptible to imipenem and amikacin. He is ESBL positive. 3. Clostridium difficile. Toxin is negative. C. difficile antigen was positive. HOSPITAL COURSE: Mr. Suresh presented to the emergency room with his daughter after having found blood on his chair and his catheter bag, as well as running a fever he was found to have a Klebsiella ESBL positive urinary tract infection for which he has been given ertapenem IV. After today's dose he does have 5 more days of treatment. He does carry a history of IBS with diarrhea. He did become constipated while in the hospital and was given. Lactulose as well as MiraLAX which once this started working he did have significant diarrhea. Medications were discontinued and diarrhea cleared within 24 hours. We did continue his home medications during the hospitalization. We did trend electrolytes and replete as appropriate. DISCHARGE EXAMINATION: Cardiovascular: Regular rate and rhythm. S1 and S2 appreciated. Pulmonary: Breath sounds are clear. No increased work of breathing noted. Gastrointestinal: Abdomen is soft, nontender, nondistended with bowel sounds in all 4 quadrants. Extremities: No clubbing, cyanosis, or edema. Pulses are palpable x4. Neurologic: He is awake, alert and cooperative. DISCHARGE MEDICATIONS: Norvasc 2.5 daily, Celexa 20 mg q.a.m., Catapres 0.1 mg q.4 hours p.r.n. , Periactin 4 mg before meals t.i.d., Proscar 5 mg daily, Culturelle 1 t.i.d., Remeron 15 mg at bedtime, Klor-Con 40 mEq b.i.d., Carafate 1 g before meals and at bedtime, Invanz 1 g q.24 hours with the last dose being the 13th, O2 at 2 L by nasal cannula, and Megace 20 mg t.i.d. DISCHARGE ACTIVITY: Will be per facility's protocol. DISCHARGE DIET: Healthy heart with Ensure. DISCHARGE CONDITION: He is being discharged to rehab in stable condition. TIME SPENT: This is a greater than 30 minute discharge, from 9:30 to 10:10. Dictated by AUSTIN Marquez for Luis Rizo MD
[2016-12-31 11:34] VITALS: BP 142/98
[2016-12-31] MEDS ORDERED: MEGACE PO SCH (13:00)
== END 2016-12-31 13:23 | DRG 871 ==
LOC: P.ED 02:37 → P.EDIPHOLD 06:19 → P.MEDSURG 10:42 → P.ICU 17:41 → P.MEDSURG 12-24 08:56 → P.ICU 12-24 08:59 → P.MEDSURG 12-24 22:11
PROVIDERS: ATTEND Family Medicine
DX: A41.9 Sepsis, unspecified organism (principal); R65.21 Severe sepsis with septic shock; N17.9 Acute kidney failure, unspecified; N39.0 Urinary tract infection, site not specified; I69.351 Hemiplegia and hemiparesis following cerebral infarction affecting right dominant side; I10 Essential (primary) hypertension; D69.6 Thrombocytopenia, unspecified; E87.6 Hypokalemia; K21.9 Gastro-esophageal reflux disease without esophagitis; N40.0 Benign prostatic hyperplasia without lower urinary tract symptoms; K58.0 Irritable bowel syndrome with diarrhea; F03.90 Unspecified dementia, unspecified severity, without behavioral disturbance, psychotic disturbance, mood disturbance, and anxiety; B96.1 Klebsiella pneumoniae [K. pneumoniae] as the cause of diseases classified elsewhere; Z79.899 Other long term (current) drug therapy; Z79.02 Long term (current) use of antithrombotics/antiplatelets; Z85.820 Personal history of malignant melanoma of skin; Z87.891 Personal history of nicotine dependence; Z83.3 Family history of diabetes mellitus; Z80.42 Family history of malignant neoplasm of prostate
CPT/HCPCS: 36415; 36569; 51702; 51798; 71010; 74176; 80048; 80053; 81001; 83605; 83630; 83735; 85025; 85027; 85610; 85730; 87040; 87077; 87088; 87186; 87324; 87449; 89055; 94761; 96365; 96367; 96375; J0131; J0692; J0696; J1265; J1335; J1630; J2060; J2270; J2550; J7030; J7040; S0138; 97530-GP

== ENCOUNTER 2017-05-29 05:17 | Inpatient (IN) ==
[2017-05-29 05:47] LABS: URINE SOURCE CLEAN CATCH
[2017-05-29 05:50] LABS: BILIRUBIN URINE NEGATIVE (NEGATIVE); BLOOD URINE SMALL (NEGATIVE); COLOR YELLOW; GLUCOSE URINE NEGATIVE (NEGATIVE); LEUKOCYTES URINE LARGE (NEGATIVE); NITRITE URINE POSITIVE (NEGATIVE); PH URINE 6.5; PROTEIN URINE 30 mg/dL (NEGATIVE); SP GRAVITY URINE 1.012; TURBIDITY URINE TURBID (CLEAR); UROBILINOGEN URINE NORMAL (NORMAL)
[2017-05-29 05:52] LABS: URINE MICRO REVIEW NEEDED? YES
[2017-05-29 05:57] LABS: UR EPITHELIAL CELLS <10 /HPF (<10); URINE BACTERIA 4+ /HPF; URINE CULTURE NEEDED? YES; URINE WBC TNTC /HPF (<10)
--- NOTE | 2017-05-29 06:05 | PROVIDER DOCUMENTATION ---
HPI-Musculoskeletal Pain/Inj - GENERAL Chief Complaint: Fall Stated Complaint: FALL/HEAD INJ Time Seen by Provider: 05/29/17 05:39 Source: patient, family (daughter) Unable to obtain history due to:: urgency - HX OF PRESENT ILLNESS-MUSKULOSKELTAL Nature of Presenting Problem: pt apparently fell out of bed and sustained a laceration to the back of his head. He also had been told 2 days ago by their home health agency that he has a UTI but has not taken any antibiotics for it. Unknown LOC. Reported to be near his baseline mentation as pt has hx of dementia Quality of Pain: reports: none Severity in ED: mild Onset/Duration: 1-3 hours ago Timing: still present Modifying Factors: improves with: nothing Any recent injury?: Yes Locality of Occurance: Home Similar Symptoms Previously?: No Recently seen or treated by another doctor?: No - FALL INJURY Location of Pain/Injury: reports: head Pain Radiation: reports: no radiation Reason for Fall: reports: lost balance, slipped Symptoms prior to fall:: reports: none Loss of Consciousness: no loss of consciousness Injury Associated Symptoms: reports: denies symptoms - BACK & NECK PAIN/INJURY Back/Neck Pain Location: denies: C-spine Context / Method of Injury: reports: unknown, fall Associated Symptoms: reports: denies symptoms History of Chronic Neck or Back Pain?: No - TRUNK INJURY Location of Injury(s)/Pain: denies: chest Context / Method of Injury: reports: fall Associated Symptoms: reports: denies symptoms - HIP/PELVIS PAIN/INJURY Hip Pain Location: denies: hip (R) Pain Radiation: reports: no radiation Context / Method of Injury: reports: fall Associated Symptoms: reports: denies symptoms - LOWER EXTREMITY PAIN/INJURY Context / Method of Injury: reports: fell Associated Symptoms: reports: denies symptoms - UPPER EXTREMITY PAIN/INJURY Context / Method of Injury: reports: fell Associated Symptoms: reports: denies symptoms Review of Systems - Adult - REVIEW OF SYSTEMS - ADULT Constitutional: reports: no symptoms reported Eyes: reports: no symptoms reported Ears, Nose, Mouth & Throat: reports: no symptoms reported Cardiovascular: reports: no symptoms reported Respiratory: reports: no symptoms reported Musculoskeletal: reports: see HPI Integumentary: reports: see HPI Neurological: reports: no symptoms reported Psychiatric: reports: no symptoms reported Endocrine: reports: no symptoms reported Hematologic/Lymphatic: reports: no symptoms reported Allergic/Immunologic: reports: no symptoms reported All Other Systems: Reviewed and Negative Past History - Adult - PAST MEDICAL HISTORY-ADULT Review of Records: reports: Old Records Reviewed, Nursing Assessment Review, Medications Reviewed, Social history reviewed & non-contributory. Major Childhood Illnesses: reports: denies history Cardiovascular: reports: denies history Respiratory: reports: denies history Gastrointestinal: reports: denies history Obstetrical/Gynecological: reports: denies history Genitourinary: reports: chronic UTI's Musculoskeletal: reports: denies history Neurological: reports: CVA Endocrine/Immune: reports: denies history Other Conditions: reports: MRSA - PRIOR SURGERIES/PROCEDURES Surgical/Procedure History: reports: other (AAA repair) - IMMUNIZATION STATUS Childhood Immunizations: See Nurse Assessment Flu Vaccine: See Nurse Assessment - FAMILY HISTORY Family History: reviewed, not pertinent Physical Exam-Injury Related - Physical Exam-Injury Related General Appearance: appears well Immobilization?: negative: backboard Eyes: PERRL/EOMI, pink conjunctivae Head, Ears, Nose, Mouth & Throat: other (1 cm c-shaped laceration to the mid- occiput. 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 II-XII nml as tested, grossly normal Psych/Mental Status: normal mood/affect Progress - PLAN OF CARE/RESULTS Progress/Plan/Lab Results: Vital Signs - 8 hr 05/29/17 05:31 Temperature 98.3 F Pulse Rate 84 Respiratory Rate 17 Blood Pressure 131/79 O2 Sat by Pulse Oximetry 96 Laboratory Results - last 24 hr 05/29/17 05:27 Urine Source CLEAN CATCH Urine Color YELLOW Urine Turbidity TURBID Urine pH 6.5 Ur Specific [place] 1.012 Urine Protein 30 A Ur Glucose (Stick) NEGATIVE Ur Ketones (Stick) NEGATIVE Urine Blood SMALL A Urine Nitrite POSITIVE A Urine Bilirubin NEGATIVE Urobilinogen Dipstick NORMAL Urine Leukocytes LARGE A Urine WBC (Auto) TNTC A Urine RBC (Auto) 10-20 A U Epithel Cells (Auto) <10 Urine Bacteria (Auto) 4+ Urine Crystals Not Reportable Small Round Cells Not Reportable Urine Casts Not Reportable Urine Yeast-like Cells NONE SEEN Orders Category Date Time Status HEAD W/O CONTRAST [CT] Stat Exams 05/29/17 05:40 Taken UA NIMS W/REFLEX CULT [URINALYSIS] Stat Lab 05/29/17 05:27 Completed URINE CULTURE [RM] Routine Lab 05/29/17 05:58 Received URINE MANUAL MICROSCOPIC [URINALYSIS] Stat Lab 05/29/17 05:27 Completed Levofloxacin 500 mg/D5w [Levaquin 500 mg/D5w] Med 05/29/17 07:10 Active 500 mg in 100 ml IV NOW - CONSULTS/PCP/HOSPITALIST Notification #1 *Consult/PCP/Hospitalist*: Christian Time Discussed: 07:23 Reason/Comments: will write orders to get admitted. Consult Disposition: Admit Procedures - LACERATION/WOUND REPAIR/FB Head Wound Location: Other: occiput Wound Length: 1cm c-shaped occipital laceration Wound's Depth, Shape: superficial Wound Explored/Foreign Body: clean Irrigated with Saline?: Yes Prepped with: Hibiclens Wound Debrided: minimal Wound Repaired with: Dermabond Layer Closure?: No Departure - Departure Date of Disposition Decision: 05/29/17 Time of Disposition Decision: 07:02 DIAGNOSIS: Fall, Head contusion, UTI (urinary tract infection) Disposition: ADMITTED INPATIENT 09 Certified Medical Emergency: Emergent Condition: Critical Referrals and Follow-Ups: Tony Carson MD [Primary Care Provider] - - Critical Care Note This patient required my direct & personal management of CC.: Yes Total Time (mins): 15 Critical Care Statement: This patient required my direct personal management to treat or rule out processes, the absence of which, could potentiallly result in sudden, clinically significant life or limb threatening deterioration. Attestation - Physician/ JAMES Attestation The physician spent face to face time with patient:: Yes Advanced Practice Provider documentation review:: Supervising physician onsite and consulted in the evaluation and care of this patient. The physician did have a face to face encounter with the patient.
[2017-05-29] MEDS ORDERED: LEVAQUIN 500 MG/D5W 500 MG/100 ML IVPB IV ONE (07:10)
--- NOTE | 2017-05-29 08:46 | Diag Imaging Result Doc PS360 ---
EXAM: HEAD W/O CONTRAST - 05/29/2017 HISTORY: fall, hit head, blood thinners TECHNIQUE: Dose reduction protocol COMPARISON: 02/28/2016 FINDINGS: There are generalized atrophic changes and mild chronic microvascular ischemic changes similar to the previous exam. There is no evidence of recent infarct, although acute infarcts may not be immediately visible. There is no evidence of intracranial hemorrhage, mass effect, or midline shift. There is no evidence of skull fracture. The visualized right maxillary sinus is completely opacified and has thickened bony margins, suggesting chronic sinusitis. There is expansion of the right maxillary sinus opacity medially into the right nasal cavity. This may represent a large mucous retention cyst or polyp. This pushes the medial right maxillary sinus wall medially into the right nasal cavity area and may possibly extend through the medial wall. There is a mucous retention cyst in the left maxillary sinus. IMPRESSION: No evidence of intracranial injury. No intracranial hemorrhage or mass effect. Chronic right maxillary sinusitis. Large right maxillary sinus mucous retention cyst or polyp which bulges medially into the right nasal cavity. Left maxillary sinus mucous retention cyst. The adoption worker radiologist provided primary results at 6:27 AM on 05/29/2017. Electronically signed by Constantino Kowalski 05/29/2017 8:44 AM
[2017-05-29 09:57] LABS: MANUAL DIFF NEEDED? NO
[2017-05-29 10:12] LABS: AGAP 12; BUN 24 mg/dL (8-22); CALCIUM 8.7 mg/dL (8.8-10.2); CHLORIDE 105 mmol/L (98-107); COSMO 287; POTASSIUM 4.3 mmol/L (3.5-5.1); SODIUM 142 mmol/L (136-145); TCO2 25 mmol/L (25-35)
[2017-05-29 10:14] LABS: BASO% 0.6 % (0.0-0.8); EOS# 0.29 X1000 (0.0-0.7); EOS% 3.5 % (0.0-10.0); HEMATOCRIT 39.2 % (42.0-52.0); HEMOGLOBIN 12.9 g/dL (14.0-18.0); LYMPH# 1.44 X1000 (1.2-3.4); LYMPH% 17.3 % (20.5-51.1); MCH 30.4 PG (27-31); MCHC 32.9 g/dL (33-37); MCV 92.2 FL (81-99); MONO# 0.93 X1000 (0.11-0.59); MONO% 11.2 % (1.7-9.3); NEUT% 67.4 % (42.2-75.2); PLT 218 X1000 (130-400); RBC 4.25 XMIL (4.7-6.1)
[2017-05-29] MEDS: PERIACTIN PO SCH ×2 (11:20→17:29)
[2017-05-29] MEDS: DOXYCYCLINE PO SCH (11:20)
--- NOTE | 2017-05-29 13:37 | HISTORY AND PHYSICAL ---
CHIEF COMPLAINT: Confusion with fall. HISTORY OF PRESENT ILLNESS: This is an 87-year-old, white male, who has been having ongoing problem for several days. He was seen in the ER with urinary tract infection which was cultured, and he was sent home on appropriate antibiotics. He continued to have some confusion and weakness beyond his usual status and fell today returning to the ER. His urine still showed evidence of urinary tract infection despite appropriate antibiotics, and he was admitted for further treatment and workup. He did have a laceration to the back of the head which was glued together successfully and had negative CT scan. PAST MEDICAL HISTORY: 1. Coronary artery disease. 2. BPH. 3. Allergic rhinitis. 4. Depression. 5. Mild senile dementia. ALLERGIES: Clindamycin. FAMILY HISTORY: Noncontributory. SOCIAL HISTORY: 1. The patient is a former smoker. Does not use alcohol or any illicit drugs. 2. Gastroesophageal reflux disease. 3. Irritable bowel syndrome with diarrhea. 4. Previous embolic stroke with right-sided weakness. PAST SURGICAL HISTORY: 1. Tonsillectomy. 2. TURP. 3. Repair of abdominal aortic aneurysm. 4. 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 REVIEW OF SYSTEMS: The patient's drafting clerk who was there stated that he had been having trouble with overall weakness and a little bit of confusion for several days. Despite the diagnosis with UTI earlier in the week, he just did not seem to recover from that and continued to have a downhill course. They did not detect any fever, chills or night sweats. His weight has been stable. He has been trying to keep up with his eating and drinking normally. Bowel movements have been normal. Urine output has been normal. PHYSICAL EXAMINATION: GENERAL: He is an elderly white male in no acute distress. HEENT: The patient has a glued together 1.5 cm laceration on the back of his head. This seems to be fine. Sclerae are anicteric. Oral mucosa is reasonably hydrated. Normal coloration. NECK EXAM: No JVD. LUNGS: Clear to auscultation. CARDIOVASCULAR: Reveals a regular rhythm without appreciable murmur or gallop. ABDOMEN: Benign. Bowel sounds are present. Soft. EXTREMITIES: There is trace edema in the lower extremities in the dependent area. NEUROLOGIC: The patient's right hand is up near his chest. He does not move it at all. He seems oriented in a general fashion, but I am not sure of his overall level of comprehension. ASSESSMENT/PLAN: 1. The patient is admitted with mild to moderate metabolic encephalopathy probably due to urinary tract infection. He had similar episode late last year and has had multiple urinary tract infections. The latest culture from 05/27/2017 showed a Citrobacter koseri species which is sensitive to Levaquin. He has been continued on that medication intravenous. He also had a March urine culture which was catheterized, which showed Staph aureus with sensitivity to doxycycline. I have started him on the doxycycline in addition until our latest culture comes back. In the remote past dating back to December and October, he had Klebsiella pneumonia with a significant resistance pattern. Pending our most recent culture, we will adjust antibiotics as necessary. 2. The patient's dementia and depression are being addressed with his home medications. 3. The patient has had multiple workups for comorbidities through the last year or so. I will defer any further studies and the necessity for them to Dr. Carson when he sees the patient tomorrow. Otherwise, other home medications remain as they were previously. cc: MD Amarjit Muñiz MD
[2017-05-29] MEDS: DEPAKENE LIQUID PO SCH (21:21)
[2017-05-29] MEDS: KLOR-CON PO SCH (21:21)
[2017-05-29] MEDS: REMERON PO SCH (21:21)
[2017-05-30] MEDS: PERIACTIN PO SCH ×3 (06:20→16:39)
[2017-05-30] MEDS ORDERED: LEVAQUIN 250 MG/D5W 250 MG/50 ML IVPB IV SCH (08:00)
[2017-05-30] MEDS: KLOR-CON PO SCH ×2 (08:38→20:37)
[2017-05-30] MEDS: PLAVIX PO SCH (08:38)
[2017-05-30] MEDS: FLOMAX PO SCH (08:38)
[2017-05-30] MEDS: PROSCAR PO SCH (08:38)
[2017-05-30] MEDS: DOXYCYCLINE PO SCH (08:38)
[2017-05-30] MEDS: DEPAKENE LIQUID PO SCH ×2 (08:38→20:37)
[2017-05-30] MEDS: CELEXA PO SCH (08:38)
[2017-05-30] MEDS ORDERED: DEPAKOTE PO SCH (09:00)
--- NOTE | 2017-05-30 11:13 | PROGRESS NOTE ---
DATE: 05/30/2017 Mr. Kiran Suresh was admitted to [facility] with a metabolic encephalopathy secondary to urinary tract infection. He does have an underlying history of mild cognitive impairment. Previous scans of the brain demonstrated diffuse white matter changes. He has had recurrent urinary tract infections, and recently underwent a repeat TURP. Family reported that he had increasing confusion and disorientation. A recent urine culture grew out Citrobacter sensitive to multiple antibiotics. He was on appropriate p.o. antibiotics. Unfortunately, his confusion and disorientation worsened. This morning, he is awake and easily arousable. He knows that he is at the hospital, but cannot tell me the name of the hospital. He can tell me his full name. He does not know the year. He still is confused and disoriented at times. He has had no obvious seizure activity on the Depakote. OBJECTIVE: Vital Signs: Temperature 97.8 degrees, pulse 82, respirations 20, BP 140/90. Cardiovascular: Regular rate and rhythm. Lungs: Clear. Abdomen: Mild tenderness over the bladder. The bladder is not distended. He has good bowel sounds. Extremities: Trace ankle edema. Neurologic: He has residual right-sided weakness from a previous stroke. ASSESSMENT AND PLAN: 1. Metabolic encephalopathy, secondary to urinary tract infection, with sepsis. He has had confusion and disorientation. He has had a pulse rate of 90 and a respiratory rate of 20. Because of the subclinical seizures, I will stop the Levaquin and switch him to Zosyn 2.25 g IV q.6 hours, pending final urine cultures and blood cultures x2. He does have mild underlying cognitive impairment, and has not been able to tolerate drugs such as Exelon patches or Aricept, due to persistent nausea and vomiting. 2. Previous embolic cerebrovascular accident. He rapidly decompensates physically, with prolonged hospitalizations. We are going to try to be as aggressive as possible, with keeping him as active as possible. I am going to have the nursing staff ambulate him at least once per shift, and have him sit up in a chair each shift. We will consult Physical Therapy. cc: Amarjit Carson MD
[2017-05-30] MEDS: ZOSYN 2.25 GM/NS 2.25 GM/50 ML IVPB IV SCH ×3 (11:41→21:19)
[2017-05-30] MEDS: REMERON PO SCH (20:37)
[2017-05-31] MEDS: ZOSYN 2.25 GM/NS 2.25 GM/50 ML IVPB IV SCH ×4 (04:25→21:14)
[2017-05-31] MEDS: PERIACTIN PO SCH ×3 (05:59→17:33)
[2017-05-31] MEDS: PLAVIX PO SCH (10:21)
[2017-05-31] MEDS: CELEXA PO SCH (10:21)
[2017-05-31] MEDS: PROSCAR PO SCH (10:21)
[2017-05-31] MEDS: KLOR-CON PO SCH ×2 (10:21→20:53)
[2017-05-31] MEDS: DEPAKENE LIQUID PO SCH ×2 (10:22→20:53)
[2017-05-31] MEDS: FLOMAX PO SCH (10:22)
[2017-05-31] MEDS ORDERED: STERILE WATER INJ. INJ ONE (11:11)
[2017-05-31] MEDS ORDERED: GEODON IM ONE (11:11)
[2017-05-31] MEDS: ATIVAN IV PRN (14:15)
[2017-05-31] MEDS: MYCOLOG CREAM TOP SCH (17:35)
[2017-05-31] MEDS: REMERON PO SCH (20:53)
[2017-06-01] MEDS: ATIVAN IV PRN ×2 (00:46→18:00)
[2017-06-01] MEDS: ZOSYN 2.25 GM/NS 2.25 GM/50 ML IVPB IV SCH ×4 (04:10→21:41)
[2017-06-01] MEDS: PERIACTIN PO SCH ×3 (06:30→17:09)
[2017-06-01] MEDS: DEPAKENE LIQUID PO SCH ×2 (10:21→21:41)
[2017-06-01] MEDS: PLAVIX PO SCH (10:21)
[2017-06-01] MEDS: PROSCAR PO SCH (10:21)
[2017-06-01] MEDS: KLOR-CON PO SCH ×2 (10:21→21:42)
[2017-06-01] MEDS: CELEXA PO SCH (10:21)
[2017-06-01] MEDS: FLOMAX PO SCH (10:22)
[2017-06-01] MEDS: MYCOLOG CREAM TOP SCH ×3 (10:22→16:56)
--- NOTE | 2017-06-01 17:23 | PROGRESS NOTE ---
DATE: 06/01/2017 Mr. Suresh was admitted to [facility] with a metabolic encephalopathy secondary to urinary tract infection with sepsis. Urine cultures have grown out Citrobacter koseri sensitive to multiple medications. He was highly agitated throughout the night and was very restless. He attempted to get out of bed several times. They had to give him Ativan on a p.r.n. basis. When I saw him earlier today he was still somewhat sedated but did wake up and asked me why I was not a pretty nurse. He knew that he was in the hospital and could tell me his name. OBJECTIVE: Vital signs: Temperature 97.2 degrees, pulse 87, BP 115/93. CV: Regular rate and rhythm. Lungs: Clear. Abdomen: Soft, nontender, with active bowel sounds. ASSESSMENT AND PLAN: Metabolic encephalopathy. He does have underlying cognitive impairment and I do believe that his mental state is slowly improving toward baseline. We will continue Zosyn pending final urine and blood cultures. He has had a recent TURP procedure and I believe that he will need a prolonged course of antibiotics prior to going home. Given the er's he may benefit from low-dose Seroquel or even Geodon. I certainly do not want to make him overly sedated. cc: Amarjit Carson MD
[2017-06-01] MEDS: REMERON PO SCH (21:41)
[2017-06-02] MEDS: ZOSYN 2.25 GM/NS 2.25 GM/50 ML IVPB IV SCH ×5 (03:47→22:20)
[2017-06-02] MEDS: PERIACTIN PO SCH ×3 (06:26→15:51)
[2017-06-02] MEDS: CELEXA PO SCH (08:59)
[2017-06-02] MEDS: PLAVIX PO SCH (08:59)
[2017-06-02] MEDS: FLOMAX PO SCH (08:59)
[2017-06-02] MEDS: PROSCAR PO SCH (08:59)
[2017-06-02] MEDS: DEPAKENE LIQUID PO SCH ×2 (09:00→20:29)
[2017-06-02] MEDS: MYCOLOG CREAM TOP SCH ×3 (09:00→18:51)
[2017-06-02] MEDS: KLOR-CON PO SCH ×2 (09:04→20:30)
--- NOTE | 2017-06-02 18:09 | PROGRESS NOTE ---
DATE: 06/02/2017 SUBJECTIVE: Mr. Suresh was admitted to [facility] with a metabolic encephalopathy secondary to a UTI with sepsis. Blood cultures are negative. Urine culture grew out Citrobacter freundii which was sensitive to multiple medications. His mental status continues to wax and wane. At times, he is much more lucid and interactive with family and staff. At other times, he is very sedated and agitated. He does have baseline confusion. He has made very little progress with physical therapy. Physical Therapy worked with him today. He required max assist with transfers. He needed moderate to maximum assist to maintain balance. We have tried to get him to sit in a chair multiple times throughout the day. He has not been able to ambulate. OBJECTIVE: Vital Signs: Temperature 97.5 degrees, pulse 70, respiration is 20, BP 109/78. CV regular rate and rhythm. Lungs: Clear. Abdomen: Soft, nontender, with active bowel sounds. ASSESSMENT AND PLAN: 1. Mild cognitive impairment with metabolic encephalopathy secondary to urinary tract infection with sepsis. We will continue fluid resuscitation and broad-spectrum IV antibiotics. If he continues to have episodes of psychosis and increased agitation and confusion we may need to add low-dose Seroquel particularly at night. 2. Physical debility. He is very weak. He is able to do very little independently. He has had a previous stroke with residual right-sided weakness. We will continue physical therapy and we will consult Job Placement Specialist to look for a rehab bed. cc: Amarjit Carson MD
[2017-06-02] MEDS: ATIVAN IV PRN (20:29)
[2017-06-02] MEDS: REMERON PO SCH (20:30)
[2017-06-03] MEDS: ZOSYN 2.25 GM/NS 2.25 GM/50 ML IVPB IV SCH ×4 (04:04→21:28)
[2017-06-03] MEDS: PERIACTIN PO SCH ×3 (06:22→16:38)
[2017-06-03] MEDS: CELEXA PO SCH (09:32)
[2017-06-03] MEDS: FLOMAX PO SCH (09:32)
[2017-06-03] MEDS: PROSCAR PO SCH (09:32)
[2017-06-03] MEDS: DEPAKENE LIQUID PO SCH ×2 (09:32→21:28)
[2017-06-03] MEDS: KLOR-CON PO SCH ×2 (09:32→21:29)
[2017-06-03] MEDS: MYCOLOG CREAM TOP SCH ×3 (09:38→16:37)
[2017-06-03] MEDS: PLAVIX PO SCH (09:38)
--- NOTE | 2017-06-03 13:34 | PROGRESS NOTE ---
DATE: 06/03/2017 SUBJECTIVE: Mr. Kiran Suresh was admitted to [facility] with a metabolic encephalopathy secondary to urinary tract infection with sepsis. He does have underlying vascular dementia. He has baseline confusion and disorientation. He has sundowner's type activity on a consistent basis at home. He had been having increasing confusion and disorientation, which prompted them to bring him to the hospital for further evaluation. A urine culture grew out Citrobacter freundii. Blood cultures were negative. He has been on IV Zosyn and remains afebrile. He is hemodynamically intact. His mental status continues to wax and wane. At times, he is easily arousable and is oriented to name and place. At other times, he is highly agitated, confused, and disoriented. A CT scan of the brain demonstrated diffuse cerebral atrophy and chronic white matter type changes. He has had a large left hemispheric stroke with residual right- sided weakness in the past. We have tried Aricept in the past, but he was unable to tolerate the Aricept secondary to nausea and vomiting. OBJECTIVE: Vital Signs: Temperature 97.3 degrees, pulse 76, blood pressure 159/96. General: He is resting quietly. He was oriented to name only. He seemed somewhat sedated. Cardiovascular: Regular rate and rhythm. Lungs: Clear. Abdomen: Soft, nontender, with active bowel sounds. ASSESSMENT AND PLAN: 1. Metabolic encephalopathy secondary to urinary tract infection with sepsis. I believe that the sepsis has resolved. Blood cultures are negative. Urine cultures grew out Citrobacter freundii. He is hemodynamically stable. We will continue intravenous Zosyn, and I will most likely treat him with a prolonged course of oral antibiotics as an outpatient given his history of recurrent urinary tract infections. 2. He does have underlying vascular dementia. A CT scan of the brain demonstrated diffuse cerebral atrophy and white matter changes. His daughter, Lexy Suresh, is concerned about the etiology of the baseline confusion, as to whether it is Alzheimer dementia or vascular dementia. I am going to check an MRI of the brain with and without contrast today. I want to make sure that there are no intracranial masses given a history of melanoma. I want to make sure that there has been no stroke. 3. There has been some question about subclinical seizure activity. The family has noted that he has periods where he simply zones out and becomes more confused and disoriented. He has been on Depakote. I will increase the Depakote to 500 mg twice daily. I am going to recheck electrolytes including a CBC and a CMP. We will check a 24-hour EEG. We will consult Neurology. I am going to begin Exelon patches 4.6 grams 1 patch to the chest daily and titrate upward to maintenance dosage of 9.5 mg 1 patch to the chest daily. 4. Physical debility. He is essentially unable to do much of anything physically in an independent manner. We will continue physical therapy, and he will very likely need rehabilitation to maximize his chances of returning home safely or he may ultimately require clinical quality assurance specialist jail care. cc: Amarjit Carson MD
--- NOTE | 2017-06-03 13:57 | Diag Imaging Result Doc PS360 ---
MRI BRAIN W W/O CONTRAST - 06/03/2017 INDICATION: worsening confusion COMPARISON: Head CT 05/29/2017, brain MRI 03/06/2016 FINDINGS: There is excessive patient motion artifact. No area of restricted diffusion. No obvious intracranial mass or hemorrhage. There is apparent atrophy and chronic microvascular disease. There is bilateral maxillary sinusitis right greater than left. No abnormal contrast enhancement. IMPRESSION: No acute disease. Chronic findings as detailed above. Electronically signed by Richard Malloy 06/03/2017 1:55 PM
--- NOTE | 2017-06-03 14:35 | CONSULTATION ---
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 He has not tolerated cholinesterase inhibitors, including donepezil and galantamine because of nausea and possibly other adverse effects. He has history of transient increased confusion associated with previous medical illness, particularly with UTI. He presented at this time with documented UTI, increased confusion, weakness, falling. There is past history of ischemic heart disease, depression, GERD. There is reported history of stroke with residual right-sided weakness. Workup includes brain MRI just completed with report pending. Review of computer record shows 03/06/2016 brain MRI showed chronic changes. On 03/16/2016 EEG showed generalized slowing. I have reviewed his current home medication list. Among others, that list includes valproic acid and divalproex, mirtazapine, citalopram. Vital sign record this admission shows he has been afebrile. He had systolic blood pressure recorded once in the 80s, twice in the 90s but mostly 120s-130s. On exam, Coach Suresh is awake and alert, mostly attentive. He carried on some appropriate conversation and at other times, seemed inattentive. There was never altered awareness or altered consciousness apparent. Head is unremarkable. There is some increased tone in the neck consistent with his expected degenerative cervical spine changes but no meningismus. Tone is slightly increased in the right arm. He used his right arm purposefully. I did not test his gait. He has good power in the left limbs. Plantar response is extensor bilaterally. Visual acuity seems poor. He had trouble with visual field testing but he did count fingers to the right and to the left. Tongue is midline. Facial motility is diminished bilaterally. There is no resting tremor, cogwheeling or other Parkinsonian feature. His responses to sensory testing were equivocal but there was not a reproducible finding. He was not able to tell me the name of the hospital, the day of the week, the month, the name of the President or the reason for his hospital admission. He did not answer when I asked him to report recent news. I did not test his cognitive function further. IMPRESSION: 1. Baseline cognitive impairment, probably major cognitive impairment/dementia. In that setting, any toxic or metabolic disturbance will likely have a more dramatic and more protracted period of encephalopathy with increased confusion and increased gait difficulty. 2. 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 3. Reported history of old stroke with stable right hemiparesis. I do not see definite clinical evidence of new focal neurologic event. We can check on the MRI report soon. I do not have any urgent suggestion. I agree with Dr. Carson's plans to try rivastigmine patch. We might add memantine when practical. We can continue with his citalopram and mirtazapine. If these are not clearly providing benefit, those can be tapered and stopped. No urgent suggestions. Thanks for asking me to see Social Security Benefits Interviewer Kerwin. cc: MD Amarjit Agudelo III, MD MTDZoya
[2017-06-03] MEDS: EXELON 4.6MG/24HRS TD SCH (14:36)
[2017-06-03 14:40] LABS: HEMATOCRIT 44.3 % (42.0-52.0); HEMOGLOBIN 14.7 g/dL (14.0-18.0); MCH 30.7 PG (27-31); MCHC 33.2 g/dL (33-37); MCV 92.5 FL (81-99); MPV 10.1 FL (7.4-10.4); RBC 4.79 XMIL (4.7-6.1)
[2017-06-03 15:05] LABS: ALBUMIN 3.5 g/dL (3.5-5.0); TOTAL BILIRUBIN 0.71 mg/dL (0.20-1.00); TOTAL PROTEIN 6.6 g/dL (6.3-8.3)
[2017-06-03] MEDS: REMERON PO SCH (21:29)
[2017-06-04] MEDS: ZOSYN 2.25 GM/NS 2.25 GM/50 ML IVPB IV SCH ×3 (03:37→16:07)
[2017-06-04] MEDS: PERIACTIN PO SCH ×3 (06:19→16:07)
[2017-06-04] MEDS: KLOR-CON PO SCH (08:55)
[2017-06-04] MEDS: PROSCAR PO SCH (08:55)
[2017-06-04] MEDS: CELEXA PO SCH (08:55)
[2017-06-04] MEDS: FLOMAX PO SCH (08:55)
[2017-06-04] MEDS: PLAVIX PO SCH (08:55)
[2017-06-04] MEDS: EXELON 4.6MG/24HRS TD SCH (08:56)
[2017-06-04] MEDS: DEPAKENE LIQUID PO SCH (08:56)
[2017-06-04] MEDS: MYCOLOG CREAM TOP SCH ×3 (10:43→20:13)
--- NOTE | 2017-06-04 11:25 | PROGRESS NOTE ---
DATE: 06/04/2017 SUBJECTIVE: Mr. Suresh was admitted to [facility] with metabolic encephalopathy secondary to urinary tract infection with sepsis. The sepsis has resolved. He is currently still taking Zosyn 2.25 g IV q.8 hours. Urine cultures grew out Citrobacter freundii. Over the past several days. His mental status has waxed and waned. At times, he is awake and more lucid. At other times, he is highly agitated and more confused. An MRI of the brain demonstrated diffuse cerebral atrophy and chronic white matter changes. He seemed much more alert and interactive this morning. He knew his full name and that he was in the hospital. He did not know the date. clerical assistant was helping to feed him. He had no obvious seizure activity. OBJECTIVE: Vital Signs: Temperature 98 degrees, pulse 96, respirations 18, BP 126/93. CV: Regular rate and rhythm. Lungs: Clear. Abdomen: Soft, nontender, with active bowel sounds. ASSESSMENT AND PLAN: 1. Metabolic encephalopathy. His mental status continues to wax and wane. He does have underlying vascular dementia. We had tried Razadyne and Aricept in the past but he was unable to tolerate due to nausea. We have started him on Exelon patches. There has been question of subclinical seizures. We increased the Depakote and have scheduled him for 24-hour EEG. We will continue to monitor him neurologically. 2. Physical debility. We will continue physical therapy and we will consult health social work professor for rehab placement. cc: Amarjit Carson MD
--- NOTE | 2017-06-04 13:06 | PROGRESS NOTE ---
DATE: 06/04/2017 Psychologist Personnelzhanna Suresh was sleeping as I approached the bedside. He waked easily and remained alert and had some conversation with me. He does have a little bit of difficulty using the right hand which is baseline. There is no new focal neurologic deficit. His MRI scan did not show anything remarkable. He had a prolonged EEG recorded late yesterday, over several hours until he removed the electrodes himself. This shows relatively mild generalized slowing considering his age and dementia. There was not definite epileptiform discharge that I could identify. We will get the more complete report when Dr. Craig reads that EEG Wednesday. I do not have any new suggestion today from a neurologic standpoint. He seems to be tolerating rivastigmine patch thus far. As mentioned yesterday, we can consider memantine when practical. Thanks again for asking me to see Coach Suresh. cc: MD Amarjit Agudelo III, MD MTDD
[2017-06-05] MEDS: ZOSYN 2.25 GM/NS 2.25 GM/50 ML IVPB IV SCH ×2 (00:02→04:22)
[2017-06-05] MEDS: DEPAKENE LIQUID PO SCH ×3 (01:16→21:58)
[2017-06-05] MEDS: REMERON PO SCH ×2 (01:17→21:58)
[2017-06-05] MEDS: KLOR-CON PO SCH ×3 (01:17→21:58)
[2017-06-05] MEDS: PROSCAR PO SCH (08:39)
[2017-06-05] MEDS: PERIACTIN PO SCH ×3 (08:39→17:14)
[2017-06-05] MEDS: CELEXA PO SCH (08:39)
[2017-06-05] MEDS: PLAVIX PO SCH (08:39)
[2017-06-05] MEDS: EXELON 4.6MG/24HRS TD SCH (08:40)
[2017-06-05] MEDS: FLOMAX PO SCH (08:40)
[2017-06-05] MEDS: MYCOLOG CREAM TOP SCH ×3 (08:41→17:59)
--- NOTE | 2017-06-05 09:25 | PROGRESS NOTE ---
DATE: 06/05/2017 SUBJECTIVE: Mr. Suresh was admitted to [facility] with a metabolic encephalopathy secondary to urinary tract infection with sepsis. He is much more alert and interactive with family and staff. He still has significant baseline confusion. He is oriented to name only. He thought that he was on a train this morning. He has had no obvious seizure activity. We did increase the Depakote to 500 mg b.i.d. An EEG demonstrated diffuse slowing but no obvious epileptiform spikes. He remains in normal sinus rhythm. OBJECTIVE: Vital Signs: Temperature 97.7 degrees, pulse 73, respirations 16, BP 117/78. CV: Regular rate and rhythm. Lungs: Clear. Abdomen soft, nontender, with active bowel sounds. ASSESSMENT AND PLAN: 1. Vascular dementia with metabolic encephalopathy secondary to urinary tract infection with sepsis. Clinically, the sepsis has resolved. I am going to switch him to oral antibiotics including Bactrim DS 1 p.o. b.i.d. He does have underlying vascular dementia. He is tolerating Exelon patches without nausea or vomiting. We will most likely add Namenda. 2. Physical debility. He is very weak and requires maximum assistance with transfers from bed to a chair. He is non ambulatory. The family would like to try to arrange for short-term rehab placement in the hopes of being able to take him home. If he can not improve with short-term rehab, then he may very likely need a long-term [facility]ci bed. cc: Amarjit Carson MD
[2017-06-05] MEDS: SEPTRA DS PO SCH ×2 (11:00→21:58)
[2017-06-05] MEDS ORDERED: HALDOL IV ONE (16:30)
[2017-06-05] MEDS ORDERED: ATIVAN IM ONE (16:32)
[2017-06-05] MEDS ORDERED: HALDOL IM ONE (16:55)
[2017-06-06] MEDS: PERIACTIN PO SCH ×3 (07:45→15:03)
--- NOTE | 2017-06-06 09:09 | PROGRESS NOTE ---
DATE: 06/06/2017 SUBJECTIVE: Neurologically, there has been little if any change. He seems more alert and interactive with staff but still has baseline confusion and disorientation. He is oriented to name only. I really believe that he is approaching his baseline neurologically. He has had no obvious seizure activity. OBJECTIVE: Vital Signs: Temperature 97.9 degrees, pulse 77, respirations 16, BP 137/85. CV: Regular rate and rhythm. Lungs: Clear. Abdomen: Soft, nontender, with active bowel sounds. ASSESSMENT AND PLAN: Vascular dementia with metabolic encephalopathy secondary to suspected subclinical seizures and urinary tract infection with sepsis. The sepsis has resolved. We will continue Bactrim DS 1 by mouth twice a day for 1 month and we will titrate upward on the Depakote as indicated. He is physically debilitated and I do not believe that he is capable of going home independently in a safe manner. We will resume physical therapy and we will consult social economist for short-term rehab placement. cc: Amarjit Carson MD
[2017-06-06] MEDS: DEPAKENE LIQUID PO SCH ×2 (10:21→20:54)
[2017-06-06] MEDS: CELEXA PO SCH (10:21)
[2017-06-06] MEDS: PLAVIX PO SCH (10:22)
[2017-06-06] MEDS: EXELON 4.6MG/24HRS TD SCH (10:22)
[2017-06-06] MEDS: KLOR-CON PO SCH ×2 (10:22→20:53)
[2017-06-06] MEDS: FLOMAX PO SCH (10:22)
[2017-06-06] MEDS: PROSCAR PO SCH (10:22)
[2017-06-06] MEDS: SEPTRA DS PO SCH ×2 (10:23→20:53)
[2017-06-06] MEDS: MYCOLOG CREAM TOP SCH ×3 (10:35→18:02)
--- NOTE | 2017-06-06 11:00 | Diag Imaging Result Doc PS360 ---
EXAM: CHEST-PORTABLE HISTORY: HYPOXIA TECHNIQUE: AP portable upright at 1052 COMMENT: There is no evidence of acute cardiac or pulmonary disease. Compared to 05/16/2017 there is been no significant change in the appearance of the chest. IMPRESSION: Stable chest. Electronically signed by Tushar Pierce 06/06/2017 10:58 AM
[2017-06-06] MEDS: REMERON PO SCH (20:53)
[2017-06-07] MEDS: PERIACTIN PO SCH ×3 (06:51→20:49)
[2017-06-07] MEDS: DEPAKENE LIQUID PO SCH ×2 (08:25→20:49)
[2017-06-07] MEDS: CELEXA PO SCH (08:25)
[2017-06-07] MEDS: PROSCAR PO SCH (08:25)
[2017-06-07] MEDS: FLOMAX PO SCH (08:26)
[2017-06-07] MEDS: EXELON 4.6MG/24HRS TD SCH (08:26)
[2017-06-07] MEDS: SEPTRA DS PO SCH ×2 (08:26→20:50)
[2017-06-07] MEDS: PLAVIX PO SCH (08:26)
[2017-06-07] MEDS: KLOR-CON PO SCH ×2 (08:26→20:49)
[2017-06-07] MEDS: MYCOLOG CREAM TOP SCH ×3 (08:27→21:00)
[2017-06-07] MEDS: REMERON PO SCH (20:49)
[2017-06-08] MEDS: PERIACTIN PO SCH (06:13)
[2017-06-08] MEDS: KLOR-CON PO SCH (08:04)
[2017-06-08] MEDS: DEPAKENE LIQUID PO SCH (08:04)
[2017-06-08] MEDS: PROSCAR PO SCH (08:04)
[2017-06-08] MEDS: SEPTRA DS PO SCH (08:04)
[2017-06-08] MEDS: CELEXA PO SCH (08:04)
[2017-06-08] MEDS: PLAVIX PO SCH (08:04)
[2017-06-08] MEDS: MYCOLOG CREAM TOP SCH (08:04)
[2017-06-08] MEDS: FLOMAX PO SCH (08:04)
[2017-06-08] MEDS: EXELON 4.6MG/24HRS TD SCH (08:04)
[2017-06-08 08:23] VITALS: BP 148/97
--- NOTE | 2017-06-08 09:15 | DISCHARGE SUMMARY ---
ADMISSION DATE: 05/29/2017 DISCHARGE DATE: 06/08/2017 DISCHARGE DIAGNOSES: 1. Metabolic encephalopathy secondary to urinary tract infection with sepsis. 2. Metabolic encephalopathy secondary to subclinical seizures. 3. Vascular dementia. 4. Previous cerebrovascular accident with residual right-sided weakness. 5. Depression. 6. Paroxysmal atrial fibrillation. 7. Benign prostatic hypertrophy. 8. Lilia dermatitis in the groin. 9. Failure to thrive. DISCHARGE INSTRUCTIONS: 1. The patient will be transferred via ambulance to [facility] in order to undergo short- term rehab. 2. Soft diet with Ensure shakes t.i.d. with meals. ACTIVITY: As tolerated. MEDICATIONS: Exelon patches 4.6 mg 1 patch to the chest daily, Bactrim DS 1 p.o. b.i.d. for 1 month, valproic acid liquid 250 mg per 5 mL, 10 meals b.i.d., Celexa 20 mg daily, Plavix 75 mg daily, Remeron 15 mg daily, Flomax 0.4 mg daily, Mycolog cream applied to rash t.i.d., finasteride 5 mg daily, Megace 40 mg b.i.d. PHYSICAL EXAMINATION: General: This is an elderly, frail, 87-year-old, gentleman in no apparent distress. He is awake and easily arousable. He is oriented to his name and the fact that he is in the hospital. He does have baseline confusion at baseline. Vital signs: Blood pressure 148/97, pulse 83, respirations 15, O2 saturation 93% on room air. CV: Regular rate and rhythm. Lungs: Clear. Abdomen: Soft, nontender, with active bowel sounds. Neurologic: He has residual right-sided weakness. HOSPITAL COURSE: Mr. Kiran Suresh was admitted to [facility] with progressive confusion, disorientation, and altered mental status. He does have a history of vascular dementia. He had not been able to tolerate Aricept and Razadyne secondary to persistent nausea and vomiting. He had recently had a TURP procedure because of BPH and recurrent urinary tract infections. His initial CT scan of the brain demonstrated chronic right maxillary sinusitis. There was generalized atrophy and chronic white matter changes. No hemorrhages were noted. He has a history of recurrent urinary tract infections. Urine and blood cultures were obtained. The patient was initially treated with Zosyn pending blood cultures and urine cultures. Urine cultures grew out Citrobacter freundii. Blood cultures were negative. With fluid resuscitation and aggressive management of his underlying urinary tract infection, the encephalopathy resolved and he returned to his baseline neurologically. We will continue Bactrim DS twice daily for a month following discharge. He also has a history of subclinical seizures. We consulted Dr. Dillard, and EEG demonstrated diffuse slowing. We did increase the Depakote to 500 mg b.i.d. I will ask them to draw a Depakote level and a BMP in 1 week following discharge. As stated earlier, he does have a history of vascular dementia. He has also had a history of melanoma. We did obtain an MRI of the brain, which confirmed generalized cerebral atrophy and chronic white matter changes. It did show a previous stroke. We started him on Exelon patches, which he has tolerated to this point without nausea or vomiting. We will continue to titrate upward on the Exelon patches to maintenance dose of 9.5 grams, 1 patch daily. He has physical debility. He had difficulty making transfers out of bed to the chair. Physical Therapy worked with the patient. We felt that he was a very high risk for falls, and was not considered independent to return home safely. Arrangements were made to send him to short-term rehab. Having reached maximum hospital benefit, the patient was discharged in stable condition. cc: Amarjit Carson MD
--- NOTE | 2017-06-09 11:36 | EEG REPORT ---
DATE: 06/03/2017 REFERRING PHYSICIAN: Dr. Amarjit Carson. EEG #: [id number] LOOM CONTROL CHAIN BUILDER: Hien Penn. BACKGROUND INFORMATION/TECHNIQUE: A digitally recorded EEG is obtained with 1 additional channel for EKG. This was an extended EEG recording that was meant to be for 24 hours. However, the patient disconnected the leads. Start time 15:31:59, end time 20:50:41. HISTORY OF PRESENT ILLNESS: An 87-year-old male with cognitive impairment who was admitted with a metabolic encephalopathy and urinary tract infection with sepsis. There was concern about periods of zoning out and becoming more confused and disoriented. There was a question about subclinical seizure activity. An EEG is ordered to detect evidence of seizures. MEDICATIONS: Notable for Depakote, p.r.n. Ativan, Zosyn, mirtazapine, rivastigmine, and citalopram. EEG FINDINGS: Start time 15:31:59 End time 20:50:41 (the patient removed the electrodes at this time) No patient event buttons. No patient events documented on the EEG log. This is a technically limited EEG due to myogenic artifact requiring filtering as well as later in the study some electrode artifact. A posterior dominant alpha rhythm is notably absent. The background consists primarily of theta slowing with rare delta. There are admixed faster frequencies noted. No definite persistent focal slowing. No epileptiform discharges and no seizures. Hyperventilation and photic stimulation were not performed. The patient becomes drowsy but stage II sleep is not achieved. The EKG shows slight irregularity of the RR intervals. IMPRESSION AND CLINICAL CORRELATION: Abnormal extended recording EEG due to: 1. Mild to moderate generalized background slowing indicative of a mild to moderate encephalopathy. Generalized slowing is a nonspecific finding that can be seen in processes that diffusely affect the cerebrum including toxic, metabolic, pharmacologic , posthypoxic, and infectious etiologies. 2. Slight irregularity of the RR intervals on the EKG channel of uncertain clinical significance. No epileptiform discharges and no seizures are noted on the current study. This does not rule out an underlying seizure disorder. Clinical correlation is advised. cc: MD Amarjit Scott MD [facility]
== END 2017-06-08 14:13 ==
LOC: ED 05:17 → 3N 08:05
PROVIDERS: ADMIT Internal Medicine; ATTEND Internal Medicine